=== PATIENT | male | born 1940 | race Caucasian/White ===

== ENCOUNTER → 2023-07-21 07:49 | Outpatient (REF) | payer OTHER, SELFPAY | LOC: RAD 07:49 | PROVIDERS: ATTENDING PHYSICIAN Family Medicine; FAMILY PHYSICIAN Family Medicine | DX: M79.604 Pain in right leg (principal); M79.605 Pain in left leg; E11.21 Type 2 diabetes mellitus with diabetic nephropathy | CPT/HCPCS: 93922; 93925 ==

== ENCOUNTER 2023-08-08 23:12 | Inpatient (IN) | payer OTHER, SELFPAY ==
[2023-08-08 16:34] VITALS: BP 102/47
[2023-08-08 16:54] LABS: % Basophils 0.4 % (0-2); % Eosinophils 0.1 % (0-6); % Lymphocytes 4.4 % (20.5-51.1); % Monocytes 7.9 % (1.7-9.3); % Neutrophils 86.2 % (42.2-75.2); Absolute Basophils 0.1 10^3/uL (0-0.2); Absolute Immature Granulocytes 0.3 10^3/uL (0-0.05); Absolute Lymphocytes 1.4 10^3/uL (1.2-3.4); Absolute Monocytes 2.4 10^3/uL (0.1-0.6); Absolute Neutrophils 26.3 10^3/uL (1.4-6.5); Hematocrit 41.9 % (39.0-52.0); Hemoglobin 13.3 g/dL (13.0-18.0); Mean Corp Hgb Conc. 31.7 g/dL (33.0-37.0); Mean Corpuscular Hgb 25.1 pg (27.0-31.0); Mean Corpuscular Volume 79.1 fL (80.0-94.0); Mean Platelet Volume 8.8 fL (7.4-10.4); Nucleated Red Blood Cells % 0 % (-); Platelet Count 173 10^3/uL (130-400); Red Cell Dist. Width 18.8 % (11.5-14.5); White Blood Cell Count 30.5 10^3/uL (4.8-10.8)
[2023-08-08 17:04] LABS: Urine Albumin Trace (Neg - Trace); Urine Bilirubin Negative (Negative); Urine Character Slightly Cloudy (Clear); Urine Color Amber; Urine Glucose Negative (Negative); Urine Ketone Trace (Negative); Urine Leukocyte 2+ (Negative); Urine Nitrite Negative (Negative); Urine Occult Blood Trace (Negative); Urine Urobilinogen Negative (Neg - 1+)
[2023-08-08 17:07] LABS: ALT (SGPT) 30 U/L (0-50); AST (SGOT) 30 U/L (17-59); Alkaline Phosphatase 56 U/L (38-126); Blood Urea Nitrogen 16 mg/dl (9-20); Calcium 9.1 mg/dl (8.4-10.2); Carbon Dioxide 26 mmol/L (22-30); Chloride 99 mmol/L (98-107); Glucose 128 mg/dl (70-99); Potassium 3.7 mmol/L (3.5-5.1); Sodium 133 mmol/L (135-145); Total Bilirubin 1.2 mg/dl (0.2-1.3); Total Protein 7.2 g/dl (6.3-8.2); eGFR > 60.00
[2023-08-08 17:17] LABS: Urine Bacteria Many (Negative); Urine White Cell 26-30 /HPF (0-5)
[2023-08-08 17:20] LABS: Urine Red Blood Cell 0-2 /HPF (0-2)
--- NOTE | 2023-08-08 18:35 | ED.GENMED ---
History of Present Illness
General
Chief Complaint: Urinary Symptoms
Time Seen by Provider: 08/08/23 18:04
Travel History
Have you had any contact with someone who has COVID-19?: No
Do you have any symptoms of coronavirus? Fever > 100 degrees, chills, cough, shortness of breath, sore throat, loss of taste or smell, muscle aches, or headache?: No
History of Present Illness
History of Present Illness:
82-year-old male with history of A-fib on Xarelto, hypertension, hyperlipidemia presents to the emergency department for evaluation of fever and chills developing earlier in the day. He notes that his urination was painful for the past several days
intermittently but worsening over the past 24 hours. Incidentally he notes that he had a COVID-19 vaccine yesterday. His daughter reports that he had shaking chills throughout the day today and complained of numb fingers. Currently the patient
denies any chest pain, shortness of breath, or abdominal pain. Has not taken any antipyretics today.
Past History
Past History
ED Past Medical History: Arrthythmia, HTN, Hypercholesterolemia, Other and Other
ED Past Surgical History: Orthopedic, Tonsilectomy and Other
Social History
Tobacco: Former smoker
Alcohol: Occasional
Personal:
Living: with family
Employment: Retired
Family History
Family History: CAD
Review of Systems
Review of Systems
Allergies reviewed?: Yes
All Other Systems: ROS reviewed and negative except as documented in HPI and ROS
Phy Exam
Physical Exam
Physical Exam:
GEN: Well appearing, NAD, WDWN
Eyes: PERRLA, EOMs intact, no scleral icterus
HENT: NCAT, oral mucosa moist
Lungs: CTAB, no wheezes, rales, rhonchi, normal chest wall excursion
Cardiac: RRR, no M/R/G, no peripheral edema. Radial pulses 2+ bilat
Abdomen: S, NT, ND, NABS, no masses or hepatosplenomegaly
Neuro: AO x 3
MSK: No gross deformity or ecchymosis. No edema. No digital clubbing
Skin: No rashes, petechiae. Normal color, no pallor or jaundice.
Psych: Calm, cooperative, proper hygiene
Course
Orders/Labs/Results
Orders:
Orders
08/08/23 16:43
Complete Blood Count/With Diff Urgent
Comprehensive Metabolic Panel Urgent
Urinalysis Reflex To Culture Urgent
Date Specimen was Collected: 08/08/23
Time Specimen was Collected: 16:37
Urine Microscopic Reflex Cult Urgent
Urine Culture Urgent
TIEN Source: U
Specimen Description:
Date Specimen was Collected: 08/08/23
Time Specimen was Collected: 16:37
08/08/23 18:31
0.9% Sodium Chloride 1000 ml [Nss] 1,000 ml IV BOLUS
CefTRIAXone [Rocephin] 1,000 mg IV NOW STA
08/08/23 18:32
CT Abd/pel Without Iv Or Oral Urgent
Comment:
Reason For Exam: urosepsis eval for stone
08/08/23 18:36
CefTRIAXone [Rocephin] 1,000 mg .ROUTE .[facility]
08/08/23 18:39
Lactic Acid Q4H
Comment: CANCEL 2nd LACTIC ACID IF 1st LACTIC ACID IS LESS THAN 2
Blood Culture Q30M
TIEN Source: Blood/Venous
Specimen Description:
Blood Culture Q30M
TIEN Source: Blood/Venous
Specimen Description:
Abnormal Lab Results
08/08/23
16:43
WBC 30.5 H 10^3/uL
(4.8-10.8)
MCV 79.1 L fL
(80.0-94.0)
MCH 25.1 L pg
(27.0-31.0)
MCHC 31.7 L g/dL
(33.0-37.0)
RDW 18.8 H %
(11.5-14.5)
Abs Immat Gran (auto) 0.3 H 10^3/uL
(0-0.05)
Absolute Neuts (auto) 26.3 H 10^3/uL
(1.4-6.5)
Absolute Monos (auto) 2.4 H 10^3/uL
(0.1-0.6)
Immature Gran % 1.0 H %
(0-0.5)
Neutrophils % 86.2 H %
(42.2-75.2)
Lymphocytes % 4.4 L %
(20.5-51.1)
Sodium 133 L mmol/L
(135-145)
Glucose 128 H mg/dl
(70-99)
Urine Ketones Trace A
(Negative)
Ur Occult Blood Reflex Trace A
(Negative)
Leukocyte Esterase Rfl 2+ A
(Negative)
Urine WBC (Reflex) 26-30 A /HPF
(0-5)
Urine Bacteria (Reflex) Many A
(Negative)
08/08/23 16:43
08/08/23 16:43
Vital Signs
Initial and Last Documented VS:
Initial Vital Signs
Temp Pulse Resp BP Pulse Ox
99.6 F 101 20 102/47 97
08/08/23 16:34 08/08/23 16:34 08/08/23 16:34 08/08/23 16:34 08/08/23 16:34
Last Documented Vital Signs
Temp Pulse Resp BP Pulse Ox
99.6 F 102 18 110/72 98
08/08/23 16:34 08/08/23 21:31 08/08/23 21:31 08/08/23 21:31 08/08/23 21:31
MDM/Problems Addressed
MDM/Problems Addressed:
Patient's reported rigors digital paresthesias coupled with high leukocytosis concerning for gram-negative bacteremia. Workup is significant for UTI, he does have mild to moderate urinary retention with approximately 150 mL on postvoid bladder
scan. No evidence for significant urinary obstruction on CT. otherwise patient appears clinically stable, past urine culture data shows Citrobacter with insignificant resistance pattern, will start IV ceftriaxone
*Critical Care Note
Total Time (30-74mins, 75-104mins- exclusive of procedures): Not Applicable
ED Attending Note
-
Portions of this chart may have been created with voice recognition software.� Occasional wrong word or��sound alike� substitutions may have occurred due to the inherent limitations of voice recognition software.
Discharge Plan
Departure
Patient Disposition: Admit
Date of Disposition: 08/08/23
Time of Disposition: 22:04
Admit to: Med/Surg
Presentation/result/management discussed w/ accepting MD/DO: Hospitalist
Discharge Problem:
UTI (urinary tract infection), Sepsis
Prescriptions:
No Action
allopurinol 300 MG tablet
300 mg PO DAILY
testosterone cypionate 200 mg/mL Kit
240 mg IM Q3W Qty: 0
Patient Comments:
08/08/2023: 1.2ml
metoprolol succinate 50 MG tablet extended release 24 hr
25 mg PO DAILY
Ocuvite with Lutein 1 EACH tablet
1 ea PO BID
Glucosamine Sulf-Chondroitin 1 EACH capsule
1 cap PO DAILY
amitriptyline 10 MG tablet
10 mg PO HS Qty: 0 0RF
[place]-3 Plus Vitamin D3 1 EACH capsule
1 tablets PO DAILY
lisinopril 10 MG tablet
10 mg PO DAILY
Eliquis 5 MG tablet
5 mg PO BID
multivitamin Tablet
1 tab PO DAILY
metoprolol succinate 50 mg Tablet Extended Release 24 Hr
50 mg PO QPM
spironolacton-hydrochlorothiaz 25-25 mg Tablet
1 tab PO DAILY
omeprazole 40 mg Capsule,Delayed Release(Dr/Ec)
40 mg PO DAILY
cyanocobalamin (vitamin B-12) [Vitamin B-12] 500 mcg Tablet
1,000 mcg PO DAILY
tamsulosin 0.4 mg capsule
0.4 mg PO DAILY
cholecalciferol (vitamin D3) [Vitamin D3] 25 mcg (1,000 unit) Tablet
50 mcg PO DAILY
Referrals:
Hiram Lima MD [Family Provider] -
Interventions
Interventions:
*Risk Screen - Suicide Last Done: 08/08/23 17:53
*General Assessment Last Done: 08/08/23 17:53
*Neglect/Abuse Screening Last Done: 08/08/23 17:53
ED- Fall Risk Assessment Last Done: 08/08/23 17:53
*ED COVID-19 Vaccine History Last Done: 08/08/23 16:34
ED-Male Genitourinary Assessment Last Done: 08/08/23 17:53
Discharge Date and Time
Print Language: BENINESE
[2023-08-08] MEDS: NSS 1000 IV (18:37)
[2023-08-08] MEDS: ROCEPHIN 1000 MG IV (18:37)
[2023-08-08 18:53] VITALS: BP 110/53
[2023-08-08 19:06] LABS: Lactic Acid 1.3 mmol/L (0.7-2.0)
[2023-08-08 20:19] VITALS: BP 106/53
[2023-08-08 21:31] VITALS: BP 110/72
--- NOTE | 2023-08-08 22:38 | HPS.HSE ---
Family Physician
-
Family Physician: Hiram Lima
Chief Complaint
-
Dysuria, Frequency, Malaise
History of Present Illness
Patient is an 82y M with PMH significant for obesity, hypertension and paroxysmal A-Fib who presents to ED complaining of urinary symptoms and generalized malaise. Patient states that he started with dysuria and frequency about 3 days ago. His
symptoms have persisted since that time. Yesterday he received a COVID vaccine / booster. He remained in bed from 11PM last evening until 11AM this AM citing that he felt very weak and fatigued. He continues to have urinary symptoms. He denies
any abdominal pain, N/V/D, fevers / chills or flank pain.
Patient denies any prior history of similar symptoms following COVID vaccine.
Medical History
Past Medical History
Past Medical History: Reports Other
Additional Past Medical History:
Hypertension
Paroxysmal Atrial Fibrillation
Colon Cancer
GERD
Gout
Diet-Controlled DM-II
Obesity
Hypogonadism
Past Surgical History: Reports Other
Additional Past Surgical History:
Partial Colectomy
Cataracts
Bilateral Knee Surgery
Social History
Tobacco: Former Smoker (Remote history of tobacco use having stopped smoking 40+ years ago.)
Alcohol: Daily (1-3 drinks of vodka daily.)
Drug: None
Family History
Family History: Not pertinent
Allergies / Home Medications
Allergies reflects when Allergies were last updated in [employer].
Home Medications with original date entered in [employer]
Allergy/Medication List:
Allergies
Allergy/AdvReac Type Severity Reaction Status Date / Time
No Known Allergies Allergy Verified 01/25/23 16:47
Home Medications
allopurinol 300 mg tablet 300 mg PO DAILY 01/23/11
testosterone cypionate 200 mg/mL intramuscular kit 240 mg IM Q3W ##0 01/23/11
glucosamine sulfate dipotassium Cl 500 mg-chondroitin 400 mg capsule (Glucosamine Sulfate 2 KCL-Chondroitin) 1 cap PO DAILY 09/24/14
metoprolol succinate 50 mg tablet,extended release 24 hr 25 mg PO DAILY 09/24/14
vit A 300 mcg-C 200 mg-E 27 mg-lutein 2 mg and minerals tablet (Ocuvite with Lutein) 1 ea PO BID 09/24/14
amitriptyline 10 mg tablet 10 mg PO HS ##0 09/27/14
omega-3 650 mg-dha 400 mg-epa 200 mg-fish oil-vit D3 300 unit capsule ([place]-3 Plus Vitamin D3) 1 tablets PO DAILY 06/14/16
apixaban 5 mg tablet (Eliquis) 5 mg PO BID 12/03/18
lisinopril 10 mg tablet 10 mg PO DAILY 12/03/18
cholecalciferol (vitamin D3) 25 mcg (1,000 unit) tablet (Vitamin D3) 50 mcg PO DAILY 08/08/23
cyanocobalamin (vitamin B-12) 500 mcg tablet (Vitamin B-12) 1,000 mcg PO DAILY 08/08/23
metoprolol succinate 50 mg tablet,extended release 24 hr 50 mg PO QPM 08/08/23
multivitamin 1 tab PO DAILY 08/08/23
omeprazole 40 mg capsule,delayed release 40 mg PO DAILY 08/08/23
spironolactone 25 mg-hydrochlorothiazide 25 mg tablet 1 tab PO DAILY 08/08/23
tamsulosin 0.4 mg capsule 0.4 mg PO DAILY 08/08/23
Review of Systems
-
History Source: Patient
A 12 point ROS was completed and negative except as noted: Yes
Constitutional: Reports Fatigue; Denies Fever or Chills
EENT: Denies Sore Throat
Respiratory: Denies Cough or Trouble Breathing
Cardiac: Denies Chest Pain or Palpitations
Abdomen/GI: Denies Abdominal Pain, Nausea, Vomiting or Diarrhea
: Reports Dysuria, Frequency and Urgency; Denies Flank Pain or Bleeding
Musculoskeletal: Denies Joint Pain or Edema
Neurological: Reports Weakness; Denies Dizzy or Headache
Psych: Denies Depression or Anxiety
Physical Exam
Vital Signs
Vital Signs
Temp Pulse Resp BP Pulse Ox
99.6 F 102 18 110/72 98
08/08/23 16:34 08/08/23 21:31 08/08/23 21:31 08/08/23 21:31 08/08/23 21:31
Physical Exam
General: Other (82y M in no acute distress.)
HEENT: Moist mucous membranes and PERRLA
Respiratory: Clear; No Wheezes, Rales or Rhonchi
Cardiac: S1/S2 and Regular Rhythm; No Murmur
GI: Soft, Non Tender, Non Distended and Normal Bowel Sounds
Genito-urinary: No costovertebral tender
Musculoskeletal: No Clubbing, No Cyanosis and No Edema
Neuro: AO x 3
Laboratory Results
-
08/08/23 16:43
08/08/23 16:43
Laboratory Results
Lactic Acid Cancelled 08/08/23 22:45
Total Bilirubin 1.2 mg/dl (0.2-1.3) 08/08/23 16:43
AST 30 U/L (17-59) 08/08/23 16:43
ALT 30 U/L (0-50) 08/08/23 16:43
Alkaline Phosphatase 56 U/L (38-126) 08/08/23 16:43
Impression/Plan
-
A/P: Patient is an 82y M with PMH significant for hypertension, PA-Fib and obesity who presents to ED complaining of urinary symptoms and weakness x 3 days.
UTI
Sepsis secondary to the above
- Admit for further evaluation and treatment.
- Patient presents with leukocytosis, tachycardia and tachypnea with UA and symptoms suggestive of urinary source of infection.
- IV abx with ceftriaxone pending culture data.
- Supportive care including IVFs.
- Follow for clinical improvement.
- CT done in the ED shows no evidence of obstruction or other acute intra-abdominal process.
- If clinical syndrome has been exacerbated by COVID vaccination, but clearly not the primary culprit here.
Benign Hypertension
- BP marginal here in the ED.
- Hold spironolactone / HCTZ acutely.
- Continue other outpatient med regimen with holding parameters.
Paroxysmal Atrial Fibrillation
- Stable. Currently in sinus rhythm.
- Continue metoprolol.
- Continue Eliquis for stroke risk reduction.
Diet-Controlled DM-II
- Stable. Monitor glucose during stay and cover with SSI if needed.
Gout
- Stable. Continue allopurinol.
Obesity due to excess calories
- Affects all aspects of care.
- Encourage healthy diet and increased exercise with goal of weight reduction.
Alcohol Use Disorder
Macrocytosis
- Patient with 'at least' one drink per day.
- Monitor for any signs / symptoms of withdrawal during stay and treat as needed.
- Thiamine, MVI, etc replacement.
- Check B12 levels with chronic macrocytosis - likely secondary to EtOH use.
DVT Prophylaxis: On Eliquis
Code Status: Full
[2023-08-08 23:56] VITALS: BP 148/80; BMI 27.9
[2023-08-08 23:56] LABS: Glucose - Point of Care 100 mg/dl (70-99)
[2023-08-09 00:22] VITALS: BMI 27.9
[2023-08-09] MEDS: LR 1000 IV ×3 (00:30→20:19)
[2023-08-09] MEDS: TYLENOL 650 MG PO ×2 (00:34→18:51)
--- NOTE | 2023-08-09 01:21 | PTCARENOTE ---
Receive pt from ER. Pt alert oriented X3, calm and pleasant. Pt assist X1 to his bed, feels weak. Pt oriented to the room, call sylvester within reach. Pt has no complaint of pain, or SOB. Pt reports dysuria, and frequency. Pt on NSR on telemonitor. Pt's
Slsy=916.7, YA=067/80, IC=212, SpO2=96% on RA. Pt normally wears CPAP at home, but refuses here. MSAS=4. Pt states the last drink was Thursday. Pt states that he drinks 1 drink/day, but no alcohol sx at this time. Bed alarm in place. Tylenol given for
fever, IVFs infusing per order. Will continue to monitor the pt.
[2023-08-09 03:39] VITALS: BP 124/70
[2023-08-09 05:09] VITALS: BMI 27.6
[2023-08-09 05:52] LABS: Hematocrit 37.5 % (39.0-52.0); Hemoglobin 12.2 g/dL (13.0-18.0); Mean Corp Hgb Conc. 32.5 g/dL (33.0-37.0); Mean Corpuscular Hgb 25.4 pg (27.0-31.0); Mean Corpuscular Volume 78.1 fL (80.0-94.0); Mean Platelet Volume 9.1 fL (7.4-10.4); Platelet Count 145 10^3/uL (130-400); Red Cell Dist. Width 18.4 % (11.5-14.5)
[2023-08-09 06:28] LABS: Blood Urea Nitrogen 15 mg/dl (9-20); Calcium 8.6 mg/dl (8.4-10.2); Carbon Dioxide 24 mmol/L (22-30); Chloride 102 mmol/L (98-107); Estimated Creatinine Clearance 55 ml/min; Glucose 97 mg/dl (70-99); Potassium 3.7 mmol/L (3.5-5.1); Sodium 133 mmol/L (135-145); eGFR > 60.00
[2023-08-09 07:09] LABS: Vitamin B12 952 pg/ml (239-931)
[2023-08-09 07:15] VITALS: BP 111/74
[2023-08-09 07:33] LABS: Glucose - Point of Care 102 mg/dl (70-99)
[2023-08-09] MEDS: NOVOLOG FLEXPEN-LOW RESISTANCE SC ×3 (08:01→16:48)
[2023-08-09] MEDS: ZESTRIL 10 MG PO (08:02)
[2023-08-09] MEDS: TOPROL XL 25 MG PO (08:03)
[2023-08-09] MEDS: PROTONIX 40 MG PO (08:03)
[2023-08-09] MEDS: THIAMINE INJECTION 200 MG IV ×2 (08:03→20:20)
[2023-08-09] MEDS: ZYLOPRIM 300 MG PO (08:03)
[2023-08-09] MEDS: FLOMAX 0.400000000000000022 MG PO (08:03)
[2023-08-09] MEDS: ELIQUIS 5 MG PO ×2 (08:03→20:19)
[2023-08-09] MEDS: FOLVITE 1 MG PO (08:03)
[2023-08-09 08:46] LABS: Glycohemoglobin (HgbA1c) 6.2 % (4.0-5.6)
--- NOTE | 2023-08-09 10:58 | CM ---
Patient with Dx UTI, sepsis. Room air. Receiving IV Abx. MSAS.
Met with patient and daughter Erin, Medical POA;
the patient resides with his daughter Michelle and 3 grand-children in a 2 story house with 1 SONIA & first floor bedroom/bath.
The patient has been independent in ADLs and ambulation without using any assistive devices.[facility] [address] [place]
DME - SPC, RW, w/c, hearing aides (does not have with him)
No prior VN or SNF.
PCP - Hiram Lima
Pharmacy - [facility] [address] [place]
CM Consult: Substance Abuse
The patient says he drinks 1 vodka with tonic daily and has for years. He used to have a beer with that but is no longer drinking the beer.
The patient feels he has no issues with his Etoh intake and declines the offer for [facility] for Etoh resources/programs.
His daughter Erin agrees with the patient that he is not having any issues re; his drinking.
Offered VN and patient declined.
Plan home with family.
[2023-08-09 11:40] VITALS: BP 100/54
[2023-08-09 11:48] LABS: Glucose - Point of Care 134 mg/dl (70-99)
--- NOTE | 2023-08-09 14:37 | W.PN.HOSP.TC ---
Today's Communication/Plan
-
continue current abx pending C&S
Assessment / Plan
Assessment / Plan
A/P: Patient is an 82y M with PMH significant for hypertension, PA-Fib and obesity who presents to ED complaining of urinary symptoms and weakness x 3 days.
UTI
Sepsis secondary to the above
- Patient presents with leukocytosis, tachycardia and tachypnea with UA and symptoms suggestive of urinary source of infection.
- IV abx with ceftriaxone pending culture data.
- Supportive care including IVFs.
- Follow for clinical improvement.
- CT done in the ED shows no evidence of obstruction or other acute intra-abdominal process.
- If clinical syndrome has been exacerbated by COVID vaccination, but clearly not the primary culprit here.
Benign Hypertension
- BP remains marginal
- Hold spironolactone / HCTZ acutely.
- Continue other outpatient med regimen with holding parameters.
Paroxysmal Atrial Fibrillation
- Stable. Currently in sinus rhythm.
- Continue metoprolol.
- Continue Eliquis for stroke risk reduction.
Diet-Controlled DM-II
- Stable. Monitor glucose during stay and cover with SSI if needed.
Gout
- Stable. Continue allopurinol.
Obesity due to excess calories
- Affects all aspects of care.
- Encourage healthy diet and increased exercise with goal of weight reduction.
Hga1c 6.2%
Alcohol Use Disorder
Macrocytosis
- Patient with 'at least' one drink per day.
- Monitor for any signs / symptoms of withdrawal during stay and treat as needed.
- Thiamine, MVI, etc replacement.
- B12 levels with chronic macrocytosis -952, likely secondary to EtOH use.
DVT Prophylaxis: On Eliquis
Code Status: Full
Anticipated Discharge: > 48 hours
Subjective/Interval History
-
Date of Service: August 09, 2023
Generally feels better
Objective Data
-
Labs:
Laboratory Results
08/09/23
05:33
WBC 27.0 H
Hgb 12.2 L
Hct 37.5 L
Plt Count 145
Sodium 133 L
Potassium 3.7
Chloride 102
Carbon Dioxide 24
BUN 15
Creatinine 1.0
Glucose 97
Calcium 8.6
Vital Signs:
Vital Signs
Temp Pulse Resp BP Pulse Ox
99.1 F 104 18 100/54 100
08/09/23 11:40 08/09/23 11:40 08/09/23 11:40 08/09/23 11:40 08/09/23 11:40
I&O
08/08/23 08/09/23 08/10/23
06:59 06:59 06:59
Intake Total 510 / 510
Output Total 150 / 150
Balance 360 / 360
Review of Systems
-
History Source: Patient and Coordinated Provider
Constitutional: Reports Fever (100.7)
EENT: Reports No Symptoms Reported
Respiratory: Reports No Symptoms
Cardiac: Reports No Symptoms
Abdomen/GI: Reports No Symptoms
Genitourinary: Reports Dysuria and Frequency
Neuro: Reports No Symptoms
Physical Exam
-
General: Well Developed, Well Nourished and No Apparent Distress
HEENT: Normocephalic, Atraumatic and Moist Mucous Membranes
Respiratory: Clear to Auscultation; Negative Wheezes, Rales or Rhonchi
Cardiac: Regular Rhythm and S1/S2
GI: Soft, Nontender and Nondistended
Musculoskeletal: No Clubbing, No Cyanosis and No Edema
Skin: Warm and Dry
Neuro: Awake, Alert and Oriented
[2023-08-09 15:20] VITALS: BP 105/66
[2023-08-09 16:45] LABS: Glucose - Point of Care 134 mg/dl (70-99)
[2023-08-09] MEDS: TOPROL XL 50 MG PO (17:18)
[2023-08-09] MEDS: ROCEPHIN 1000 MG IV (17:19)
[2023-08-09] MEDS: STERILE WATER FOR INJECTION 10 ML IV (17:20)
[2023-08-09 19:17] VITALS: BP 114/65
[2023-08-09 21:21] LABS: Glucose - Point of Care 133 mg/dl (70-99)
[2023-08-09] MEDS: ELAVIL 10 MG PO (21:48)
[2023-08-09 23:11] VITALS: BP 105/64
[2023-08-10 03:50] VITALS: BP 107/67
[2023-08-10 04:30] VITALS: BMI 28.2
[2023-08-10 05:19] LABS: % Basophils 0.4 % (0-2); % Eosinophils 1.5 % (0-6); % Immature Granulocytes 0.5 % (0-0.5); % Lymphocytes 7.4 % (20.5-51.1); % Monocytes 5.6 % (1.7-9.3); % Neutrophils 84.6 % (42.2-75.2); Absolute Basophils 0.1 10^3/uL (0-0.2); Absolute Eosinophils 0.2 10^3/uL (0-0.7); Absolute Immature Granulocytes 0.1 10^3/uL (0-0.05); Absolute Lymphocytes 1.1 10^3/uL (1.2-3.4); Absolute Monocytes 0.9 10^3/uL (0.1-0.6); Absolute Neutrophils 12.8 10^3/uL (1.4-6.5); Hematocrit 36.9 % (39.0-52.0); Hemoglobin 11.6 g/dL (13.0-18.0); Mean Corp Hgb Conc. 31.4 g/dL (33.0-37.0); Mean Corpuscular Volume 79.5 fL (80.0-94.0); Mean Platelet Volume 9.4 fL (7.4-10.4); Nucleated Red Blood Cells % 0 % (-); Platelet Count 145 10^3/uL (130-400); Red Blood Cell Count 4.64 10^6/uL (4.70-6.10); Red Cell Dist. Width 18.5 % (11.5-14.5); White Blood Cell Count 15.1 10^3/uL (4.8-10.8)
[2023-08-10 05:39] LABS: Blood Urea Nitrogen 16 mg/dl (9-20); Calcium 8.3 mg/dl (8.4-10.2); Carbon Dioxide 27 mmol/L (22-30); Chloride 101 mmol/L (98-107); Estimated Creatinine Clearance 55 ml/min; Glucose 87 mg/dl (70-99); Potassium 3.5 mmol/L (3.5-5.1); Sodium 133 mmol/L (135-145); eGFR > 60.00
[2023-08-10] MEDS: LR 1000 IV ×2 (06:27→21:52)
[2023-08-10] MEDS: NOVOLOG FLEXPEN-LOW RESISTANCE SC ×2 (08:12→17:35)
[2023-08-10] MEDS: FOLVITE 1 MG PO (08:13)
[2023-08-10] MEDS: ELIQUIS 5 MG PO ×2 (08:13→19:58)
[2023-08-10] MEDS: PROTONIX 40 MG PO (08:13)
[2023-08-10] MEDS: ZYLOPRIM 300 MG PO (08:13)
[2023-08-10] MEDS: FLOMAX 0.400000000000000022 MG PO (08:13)
[2023-08-10] MEDS: TOPROL XL 25 MG PO (08:14)
[2023-08-10] MEDS: FLUSH (NSS) 1 FLUSH IV ×3 (08:16→18:10)
[2023-08-10] MEDS: THIAMINE INJECTION 200 MG IV ×2 (08:16→19:59)
[2023-08-10] MEDS: ZESTRIL PO (08:17)
[2023-08-10 08:18] VITALS: BP 97/67
[2023-08-10 08:22] LABS: Glucose - Point of Care 98 mg/dl (70-99)
[2023-08-10 10:07] VITALS: BMI 28.2
[2023-08-10 11:25] VITALS: BP 113/59
--- NOTE | 2023-08-10 11:50 | W.PN.HOSP.TC ---
Today's Communication/Plan
-
Monitor vital signs
see plan
Continue with ceftriaxone
Follow final urine culture
Continue with tamsulosin
Bladder scan
Monitor leukocytosis
Assessment / Plan
Assessment / Plan
A/P: Patient is an 82y M with PMH significant for hypertension, PA-Fib and obesity who presents to ED complaining of urinary symptoms and weakness x 3 days.
UTI
Sepsis secondary to the above
- Patient presents with leukocytosis, tachycardia and tachypnea with UA and symptoms suggestive of urinary source of infection.
- IV abx with ceftriaxone pending culture data. bcx NGTD; urine cx pending
- Follow for clinical improvement.
- CT done in the ED shows no evidence of obstruction or other acute intra-abdominal process. does show enlarged prostate. Possible adrenal nodule for which patient should follow-up outpatient
- If clinical syndrome has been exacerbated by COVID vaccination, but clearly not the primary culprit here.
Benign Hypertension
- BP remains marginal
- Hold spironolactone / HCTZ acutely.
- Continue other outpatient med regimen with holding parameters.
Paroxysmal Atrial Fibrillation
- Stable. Currently in sinus rhythm.
- Continue metoprolol.
- Continue Eliquis for stroke risk reduction.
Mild hyponatremia
Monitor
Incidental adrenal nodule
Follow-up outpatient
Diet-Controlled DM-II
- Stable. Monitor glucose during stay and cover with SSI if needed.
History of BPH
CAT scan with enlarged prostate
Follows up with urology outpatient
Continue with tamsulosin
Bladder scan
Gout
- Stable. Continue allopurinol.
Obesity due to excess calories
- Affects all aspects of care.
- Encourage healthy diet and increased exercise with goal of weight reduction.
Hga1c 6.2%
Alcohol Use Disorder
Macrocytosis
- Patient with 'at least' one drink per day.
- Monitor for any signs / symptoms of withdrawal during stay and treat as needed.
- Thiamine, MVI, etc replacement.
- B12 levels with chronic macrocytosis -952, likely secondary to EtOH use.
DVT Prophylaxis: On Eliquis
Code Status: Full
General: Well Developed, Well Nourished and No Apparent Distress
HEENT: Normocephalic, Atraumatic and Moist Mucous Membranes
Respiratory: Clear to Auscultation; Negative Wheezes, Rales or Rhonchi
Cardiac: Regular Rhythm and S1/S2
GI: Soft, Nontender and Nondistended
Musculoskeletal: No Clubbing, No Cyanosis and No Edema
Skin: Warm and Dry
Neuro: Awake, Alert and Oriented
Anticipated Discharge: Within 24 hours
Subjective/Interval History
-
Date of Service: August 10, 2023
Denies pain
Objective Data
-
Labs:
Laboratory Results
08/10/23
04:10
WBC 15.1 H
Hgb 11.6 L
Hct 36.9 L
Plt Count 145
Sodium 133 L
Potassium 3.5
Chloride 101
Carbon Dioxide 27
BUN 16
Creatinine 1.0
Glucose 87
Calcium 8.3 L
Vital Signs:
Vital Signs
Temp Pulse Resp BP Pulse Ox
98.9 F 107 18 113/59 97
08/10/23 11:25 08/10/23 11:25 08/10/23 11:25 08/10/23 11:25 08/10/23 11:25
I&O
08/09/23 08/10/23 08/11/23
06:59 06:59 06:59
Intake Total 510 / 510 2900 / 2900
Output Total 150 / 150
Balance 360 / 360 2900 / 2900
[2023-08-10 12:01] LABS: Glucose - Point of Care 190 mg/dl (70-99)
[2023-08-10] MEDS: NOVOLOG FLEXPEN-LOW RESISTANCE 1 UNITS SC (12:41)
[2023-08-10 16:14] VITALS: BP 105/62
--- NOTE | 2023-08-10 16:39 | PTCARENOTE ---
Pt AAO x3, MATHUR well, OOB in chair for most of shift, ambulates in rubio/to BR; needs assistance w/IV pole when OOB. No c/o weakness/dizziness. VSS. Telemetry:A-fib. On room air- pulse ox 96%. Abd obese,soft federico PO well. Voids in BR without
difficulty; states he still has some discomfort when urinating; denies bleeding. IVF's RL @ 100 ml/ hr infusing via Rt AC site without sx of infiltration. No c/o at present. Will continue to monitor.
[2023-08-10 17:17] LABS: Glucose - Point of Care 98 mg/dl (70-99)
[2023-08-10] MEDS: STERILE WATER FOR INJECTION 10 ML IV (17:54)
[2023-08-10] MEDS: ROCEPHIN 1000 MG IV (17:54)
[2023-08-10] MEDS: TOPROL XL 50 MG PO (17:55)
[2023-08-10] MEDS: FLUSH (NSS) IV (18:25)
[2023-08-10 19:37] VITALS: BP 135/84
[2023-08-10] MEDS: ELAVIL 10 MG PO (20:00)
[2023-08-10 21:19] LABS: Glucose - Point of Care 129 mg/dl (70-99)
[2023-08-10 23:39] VITALS: BP 121/79
[2023-08-11 03:26] VITALS: BP 103/65
[2023-08-11 04:36] LABS: % Basophils 0.5 % (0-2); % Eosinophils 3.9 % (0-6); % Immature Granulocytes 0.4 % (0-0.5); % Monocytes 10.3 % (1.7-9.3); % Neutrophils 71.9 % (42.2-75.2); Absolute Eosinophils 0.3 10^3/uL (0-0.7); Absolute Monocytes 0.8 10^3/uL (0.1-0.6); Absolute Neutrophils 5.6 10^3/uL (1.4-6.5); Hematocrit 36.4 % (39.0-52.0); Hemoglobin 11.4 g/dL (13.0-18.0); Mean Corp Hgb Conc. 31.3 g/dL (33.0-37.0); Mean Corpuscular Hgb 25.2 pg (27.0-31.0); Mean Corpuscular Volume 80.5 fL (80.0-94.0); Mean Platelet Volume 9.1 fL (7.4-10.4); Nucleated Red Blood Cells % 0 % (-); Platelet Count 148 10^3/uL (130-400); Red Blood Cell Count 4.52 10^6/uL (4.70-6.10); White Blood Cell Count 7.8 10^3/uL (4.8-10.8)
[2023-08-11 05:09] LABS: Blood Urea Nitrogen 14 mg/dl (9-20); Calcium 8.3 mg/dl (8.4-10.2); Carbon Dioxide 25 mmol/L (22-30); Chloride 106 mmol/L (98-107); Estimated Creatinine Clearance 61 ml/min; Glucose 101 mg/dl (70-99); Potassium 3.9 mmol/L (3.5-5.1); Sodium 135 mmol/L (135-145); eGFR > 60.00
[2023-08-11 06:00] VITALS: BMI 28.5
[2023-08-11 08:00] VITALS: BP 101/60
[2023-08-11] MEDS: LR 1000 IV (08:05)
[2023-08-11] MEDS: PROTONIX 40 MG PO (08:07)
[2023-08-11] MEDS: ELIQUIS 5 MG PO (08:07)
[2023-08-11] MEDS: FOLVITE 1 MG PO (08:07)
[2023-08-11] MEDS: FLOMAX 0.400000000000000022 MG PO (08:07)
[2023-08-11] MEDS: ZYLOPRIM 300 MG PO (08:07)
[2023-08-11] MEDS: THIAMINE INJECTION 200 MG IV (08:08)
[2023-08-11] MEDS: TOPROL XL 25 MG PO (08:08)
[2023-08-11] MEDS: FLUSH (NSS) 1 FLUSH IV (08:09)
[2023-08-11] MEDS: NOVOLOG FLEXPEN-LOW RESISTANCE SC ×2 (08:15→12:46)
[2023-08-11 08:16] LABS: Glucose - Point of Care 89 mg/dl (70-99)
[2023-08-11 09:56] VITALS: BP 126/70; PULSE 88; O2SAT 95
--- NOTE | 2023-08-11 10:04 | PTOTSP ---
Pt is able to get OOB, transfer, and ambulate in hallway and on stairs without assistance and without need for any assistive devices. He hopes to go home today as he plans to travel to [place] with family this weekend for a graduation. No skilled PT
needs were identified. Will sign off.
[2023-08-11 10:43] VITALS: BMI 28.5
--- NOTE | 2023-08-11 11:50 | W.PN.HOSP.TC ---
Today's Communication/Plan
-
Monitor vital signs and see plan
Change antibiotics to oral and discharge
Time of discharge 37 minutes
Assessment / Plan
Assessment / Plan
A/P: Patient is an 82y M with PMH significant for hypertension, PA-Fib and obesity who presents to ED complaining of urinary symptoms and weakness x 3 days.
UTI
Sepsis secondary to the above
- Patient presents with leukocytosis, tachycardia and tachypnea with UA and symptoms suggestive of urinary source of infection.
- bcx NGTD; urine cx grew klebsiella. Will change antibiotics to p.o. cefdinir and dc
- Follow for clinical improvement.
- CT done in the ED shows no evidence of obstruction or other acute intra-abdominal process. does show enlarged prostate. Possible adrenal nodule for which patient should follow-up outpatient
- If clinical syndrome has been exacerbated by COVID vaccination, but clearly not the primary culprit here.
Benign Hypertension
- BP remains marginal
- Hold spironolactone / HCTZ acutely.
- Continue other outpatient med regimen with holding parameters.
Paroxysmal Atrial Fibrillation
- Stable. Currently in sinus rhythm.
- Continue metoprolol.
- Continue Eliquis for stroke risk reduction.
Mild hyponatremia
Monitor
Incidental adrenal nodule
Follow-up outpatient
Diet-Controlled DM-II
- Stable. Monitor glucose during stay and cover with SSI if needed.
History of BPH
CAT scan with enlarged prostate
Follows up with urology outpatient
Continue with tamsulosin
Bladder scan
Gout
- Stable. Continue allopurinol.
Obesity due to excess calories
- Affects all aspects of care.
- Encourage healthy diet and increased exercise with goal of weight reduction.
Hga1c 6.2%
Alcohol Use Disorder
Macrocytosis
- Patient with 'at least' one drink per day.
- Monitor for any signs / symptoms of withdrawal during stay and treat as needed.
- Thiamine, MVI, etc replacement.
- B12 levels with chronic macrocytosis -952, likely secondary to EtOH use.
DVT Prophylaxis: On Eliquis
Code Status: Full
General: Well Developed, Well Nourished and No Apparent Distress
HEENT: Normocephalic, Atraumatic and Moist Mucous Membranes
Respiratory: Clear to Auscultation; Negative Wheezes, Rales or Rhonchi
Cardiac: Regular Rhythm and S1/S2
GI: Soft, Nontender and Nondistended
Musculoskeletal: No Clubbing, No Cyanosis and No Edema
Skin: Warm and Dry
Neuro: Awake, Alert and Oriented
Anticipated Discharge: Today
Subjective/Interval History
-
Date of Service: August 11, 2023
denies pain
Objective Data
-
Labs:
Laboratory Results
08/11/23 08/11/23
04:17 04:18
WBC 7.8
Hgb 11.4 L
Hct 36.4 L
Plt Count 148
Sodium 135
Potassium 3.9
Chloride 106
Carbon Dioxide 25
BUN 14
Creatinine 0.9
Glucose 101 H
Calcium 8.3 L
Vital Signs:
Vital Signs
Temp Pulse Resp BP Pulse Ox
98.9 F 81 18 101/60 95
08/11/23 08:00 08/11/23 08:08 08/11/23 08:00 08/11/23 08:08 08/11/23 08:15
I&O
08/10/23 08/11/23 08/12/23
06:59 06:59 06:59
Intake Total 2900 / 2900 2119
Balance 2900 / 2900 2119
[2023-08-11 11:52] VITALS: BP 121/60
--- NOTE | 2023-08-11 11:58 | W.DCSUMMARY ---
Discharge Summary
Discharge Data
Date of Admission: 08/08/23
Date of Discharge: 08/11/23
-
Pending Results: No
Hospital Course
82-year-old male with past medical history of hypertension, atrial fibrillation, BPH, gout, obesity, alcohol use disorder came to the hospital with sepsis secondary to urinary tract infection. Patient was initially started on IV antibiotic which
was later transitioned to oral antibiotics prior to discharge. Patient urine culture came back positive for Klebsiella. While patient was in the hospital he also had marginal normal blood pressure so his hydrochlorothiazide and spironolactone was
held. He had a CAT scan of the abdomen which showed possible incidental finding of adrenal nodule for which she was instructed to follow-up outpatient. Once patient symptoms improved, he was then discharged home with instructions to follow-up with
all his other physicians outpatient.
Discharge Plan
-
Patient Disposition: Home (Routine Discharge)
Discharge Diagnosis/Procedures: Sepsis secondary to urinary tract infection
Hyponatremia
Incidental adrenal nodule
Diet: As tolerated
Activity: As tolerated
Driving Restrictions: As prior to admission
Bathing Restrictions: None
Activity Restrictions/Additional Instructions:
Follow-up with your primary care provider for incidental adrenal nodule
Referrals:
Hiram Lima MD [Family Provider] - in less than 1 week
Prescriptions:
New
folic acid 1 mg Tablet
1 mg PO DAILY Qty: 30 0RF
cefdinir 300 mg capsule
300 mg PO BID Qty: 20 0RF
Continued
allopurinol 300 MG tablet
300 mg PO DAILY
testosterone cypionate 200 mg/mL Kit
240 mg IM Q3W Qty: 0
Patient Comments:
08/08/2023: 1.2ml
metoprolol succinate 50 MG tablet extended release 24 hr
25 mg PO DAILY
Ocuvite with Lutein 1 EACH tablet
1 ea PO BID
Glucosamine Sulf-Chondroitin 1 EACH capsule
1 cap PO DAILY
amitriptyline 10 MG tablet
10 mg PO HS Qty: 0 0RF
[place]-3 Plus Vitamin D3 1 EACH capsule
1 tablets PO DAILY
Eliquis 5 MG tablet
5 mg PO BID
multivitamin Tablet
1 tab PO DAILY
metoprolol succinate 50 mg Tablet Extended Release 24 Hr
50 mg PO QPM
omeprazole 40 mg Capsule,Delayed Release(Dr/Ec)
40 mg PO DAILY
cyanocobalamin (vitamin B-12) [Vitamin B-12] 500 mcg Tablet
1,000 mcg PO DAILY
tamsulosin 0.4 mg capsule
0.4 mg PO DAILY
cholecalciferol (vitamin D3) [Vitamin D3] 25 mcg (1,000 unit) Tablet
50 mcg PO DAILY
Held
lisinopril 10 MG tablet
10 mg PO DAILY
Hold Instructions: Monitor blood pressure greater than 140/90
spironolacton-hydrochlorothiaz 25-25 mg Tablet
1 tab PO DAILY
Hold Instructions: Monitor blood pressure greater than 140/90
Discharge Orders:
Discharge Patient (As Directed); Ordered 08/11/23
Ordered By: Dane Chris
Discharge Date and Time
Discharge Date/Time: 08/11/23 13:18
Print Language: ANDORRAN
[2023-08-11 12:30] LABS: Glucose - Point of Care 136 mg/dl (70-99)
[2023-08-11] MEDS: LR IV (12:46)
--- NOTE | 2023-08-11 14:16 | CM ---
MD entered order for discharge.
Offered Vn he declined need.
Family to drive home.
PLAN Home no needs
== END 2023-08-11 13:18 | disposition home or self-care (01) | DRG 872 ==
LOC: 4 EAST ACU 23:12
PROVIDERS: Emergency Medicine; Internal Medicine; Physician Assistant; ADMITTING PHYSICIAN Hospitalist; ATTENDING PHYSICIAN Internal Medicine; EMERGENCY PHYSICIAN Emergency Medicine; FAMILY PHYSICIAN Family Medicine
DX: A41.9 Sepsis, unspecified organism (principal); N39.0 Urinary tract infection, site not specified; E87.1 Hypo-osmolality and hyponatremia; I48.0 Paroxysmal atrial fibrillation; E78.00 Pure hypercholesterolemia, unspecified; N40.0 Benign prostatic hyperplasia without lower urinary tract symptoms; I10 Essential (primary) hypertension; E27.8 Other specified disorders of adrenal gland; E66.09 Other obesity due to excess calories; K21.9 Gastro-esophageal reflux disease without esophagitis; B96.1 Klebsiella pneumoniae [K. pneumoniae] as the cause of diseases classified elsewhere; M10.9 Gout, unspecified; E11.36 Type 2 diabetes mellitus with diabetic cataract; E29.1 Testicular hypofunction; F10.10 Alcohol abuse, uncomplicated; Z87.891 Personal history of nicotine dependence; Z79.01 Long term (current) use of anticoagulants; Z68.28 Body mass index [BMI] 28.0-28.9, adult; Z85.038 Personal history of other malignant neoplasm of large intestine
CPT/HCPCS: 51798; 74176; 80048; 80053; 81003; 81015; 82607; 82962; 83036; 83605; 85025; 85027; 87040; 87077; 87086; 87186; 96361; 96374; 97162; 99284

== ENCOUNTER 2023-10-02 09:25 | Emergency (ER) | payer SELFPAY ==
[2023-10-02 09:29] VITALS: BP 117/66
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
[2023-10-02 10:45] VITALS: BP 120/54
[2023-10-02 10:53] LABS: % Basophils 1.3 % (0-2); % Eosinophils 4.3 % (0-6); % Immature Granulocytes 0.2 % (0-0.5); % Lymphocytes 18.8 % (20.5-51.1); % Monocytes 10.9 % (1.7-9.3); % Neutrophils 64.5 % (42.2-75.2); Absolute Basophils 0.1 10^3/uL (0-0.2); Absolute Eosinophils 0.3 10^3/uL (0-0.7); Absolute Lymphocytes 1.1 10^3/uL (1.2-3.4); Absolute Monocytes 0.7 10^3/uL (0.1-0.6); Absolute Neutrophils 3.9 10^3/uL (1.4-6.5); Hematocrit 42.4 % (39.0-52.0); Hemoglobin 13.6 g/dL (13.0-18.0); Mean Corp Hgb Conc. 32.1 g/dL (33.0-37.0); Mean Corpuscular Hgb 25.5 pg (27.0-31.0); Mean Corpuscular Volume 79.4 fL (80.0-94.0); Mean Platelet Volume 8.9 fL (7.4-10.4); Nucleated Red Blood Cells % 0 % (-); Platelet Count 192 10^3/uL (130-400); Red Blood Cell Count 5.34 10^6/uL (4.70-6.10); Red Cell Dist. Width 19.7 % (11.5-14.5); White Blood Cell Count 6.1 10^3/uL (4.8-10.8)
[2023-10-02 11:00] VITALS: BP 123/62
[2023-10-02 11:35] LABS: Blood Urea Nitrogen 17 mg/dl (9-20); Calcium 9.4 mg/dl (8.4-10.2); Carbon Dioxide 25 mmol/L (22-30); Chloride 102 mmol/L (98-107); Glucose 106 mg/dl (70-99); Sodium 135 mmol/L (135-145); eGFR > 60.00
== END 2023-10-02 13:08 | disposition home or self-care (01) ==
LOC: EMR 09:25
PROVIDERS: EMERGENCY PHYSICIAN Student in an Organized Health Care Education/Training Program; FAMILY PHYSICIAN Family Medicine
DX: S20.219A Contusion of unspecified front wall of thorax, initial encounter (principal); R91.1 Solitary pulmonary nodule; V89.2XXA Person injured in unspecified motor-vehicle accident, traffic, initial encounter; I10 Essential (primary) hypertension; E78.00 Pure hypercholesterolemia, unspecified; Y92.410 Unspecified street and highway as the place of occurrence of the external cause; Z82.49 Family history of ischemic heart disease and other diseases of the circulatory system; Z87.891 Personal history of nicotine dependence
CPT/HCPCS: 99284; 71260; 74177; 80048; 85025; 93005; Q9967

== ENCOUNTER → 2023-11-13 11:58 | Outpatient (REF) | payer OTHER, SELFPAY | LOC: PET 11:58 | PROVIDERS: ATTENDING PHYSICIAN Family Medicine | DX: R91.1 Solitary pulmonary nodule (principal) | CPT/HCPCS: 78816; A9552 ==

== ENCOUNTER 2023-11-15 15:21 | Emergency (ER) | payer OTHER, SELFPAY ==
[2023-11-15 15:22] VITALS: BP 132/67
[2023-11-15 15:47] LABS: % Basophils 0.7 % (0-2); % Eosinophils 3.9 % (0-6); % Immature Granulocytes 0.3 % (0-0.5); % Lymphocytes 16.7 % (20.5-51.1); % Neutrophils 69.4 % (42.2-75.2); Absolute Basophils 0.1 10^3/uL (0-0.2); Absolute Eosinophils 0.4 10^3/uL (0-0.7); Absolute Lymphocytes 1.8 10^3/uL (1.2-3.4); Absolute Neutrophils 7.5 10^3/uL (1.4-6.5); Hematocrit 42.4 % (39.0-52.0); Hemoglobin 13.5 g/dL (13.0-18.0); Mean Corp Hgb Conc. 31.8 g/dL (33.0-37.0); Mean Corpuscular Volume 81.7 fL (80.0-94.0); Mean Platelet Volume 9.2 fL (7.4-10.4); Nucleated Red Blood Cells % 0 % (-); Platelet Count 236 10^3/uL (130-400); Red Blood Cell Count 5.19 10^6/uL (4.70-6.10); White Blood Cell Count 10.8 10^3/uL (4.8-10.8)
[2023-11-15 15:49] LABS: Urine Albumin 1+ (Neg - Trace); Urine Bilirubin Negative (Negative); Urine Character Very Cloudy (Clear); Urine Color Yellow; Urine Glucose Negative (Negative); Urine Ketone Negative (Negative); Urine Leukocyte 2+ (Negative); Urine Nitrite Negative (Negative); Urine Occult Blood 4+ (Negative); Urine Specific Gravity 1.015 (<1.030); Urine Urobilinogen Negative (Neg - 1+)
--- NOTE | 2023-11-15 15:53 | ED.GENMED ---
Addendum entered and electronically signed by Nga Oneill NP 11/20/23 08:26:
Message left on patient's phone to call back regarding final urine culture results which indicate resistance to Cipro and patient was discharged on Cipro.
Original Note:
History of Present Illness
General
Chief Complaint: Male Genito-Urinary Symptoms
Time Seen by Provider: 11/15/23 15:53
History of Present Illness
History of Present Illness:
HPI: The patient presents with dysuria. He had a similar episode a few months ago that required hospitalization. However at that time and review of old records, the patient had evidence of sepsis. He has not had fevers recently.
EXAM:
GENERAL: Well appearing in no distress
HEENT: Moist oral mucosa
CARDIOVASCULAR: No murmurs, normal heart rate, regular rhythm, No chest wall tenderness
PULMONARY: No respiratory distress, breath sounds are clear and equal
ABDOMEN: Soft with no peritoneal signs, no tenderness, there is no CVA tenderness
NEUROLOGIC: Excellent strength all extremities, no coordination deficits
PSYCHIATRIC: Appropriate mental status, normal insight and judgement
EXTREMITIES: Nontender, no edema, moves all extremities equally
SKIN: No rash, no lesions
TIME OF INITIAL ENCOUNTER: 4 PM
NUMBER AND COMPLEXITY OF PROBLEMS ADDRESSED AT THE ENCOUNTER
� Chronic conditions affecting care: A-fib, high blood pressure, hyperlipidemia
� Acute Exacerbation and/or Progression of Chronic Illness: This is an acute but recurring problem
� Differential Diagnosis includes: UTI, pyelonephritis, viral syndrome
AMOUNT AND/OR COMPLEXITY OF DATA TO BE REVIEWED AND ANALYZED
� I performed an independent evaluation of and my interpretation is:
EKG:
CT:
X-rays:
Laboratory Studies: White count normal, lactic normal, urinalysis shows very cloudy yellow urine with 26-30 white cells per high-power field
Other:
� Review of other/old records: I reviewed the records. The patient was admitted with sepsis/UTI August 07 through August 11, 2023. At that time his urine culture was positive for Klebsiella. At that time his initial white count was
over 30 and then normalized to 7.8 by discharge. His blood cultures were negative then. He was discharged on cefdinir.
� Clinical information was obtained by an independent historian: I spoke to the daughter at bedside
� Prescriptions/Medications Considered but not given: Considered using cefdinir again however family states that he had to be given additional antibiotics after last admission and are interested in trying thing different�will use
Cipro after discussing risks and benefits (could lead to some confusion)
� Further testing considered but not performed: Considered CT imaging as she did have some hematuria however he just had a CT in August and at that time did not show kidney stone.
RISK OF COMPLICATIONS AND/OR MORBIDITY OR MORTALITY OF PATIENT MANAGEMENT
� Social determinants of health affecting care: Lives at home with daughter
� Discussion with other providers:
� Escalation of care including admission/observation vs risk of discharge considered: On last admission, the patient had evidence of sepsis. Currently, his white count and vital signs are not consistent with sepsis. He is very
well-appearing.
Past History
Past History
ED Past Medical History: Arrthythmia, HTN, Hypercholesterolemia, Other and Other
ED Past Surgical History: Orthopedic, Tonsilectomy and Other
Social History
Tobacco: Former smoker
Alcohol: Occasional
Personal:
Living: with family
Employment: Retired
Family History
Family History: CAD
Phy Exam
Physical Exam
Physical Exam:
See HPI
Course
Orders/Labs/Results
Orders:
Orders
11/15/23 15:32
Complete Blood Count/With Diff Urgent
Comprehensive Metabolic Panel Urgent
Lactate Level [Lactic Acid] Q4H
11/15/23 15:33
Urinalysis Reflex To Culture Urgent
Date Specimen was Collected: 11/15/23
Time Specimen was Collected: 15:25
Urine Microscopic Reflex Cult Urgent
Urine Culture Urgent
TIEN Source: U
Specimen Description:
Date Specimen was Collected: 11/15/23
Time Specimen was Collected: 15:25
11/15/23 16:21
Ciprofloxacin HCl [Cipro] 500 mg PO NOW STA
11/15/23 19:30
Lactate Level [Lactic Acid] Q4H
Abnormal Lab Results
11/15/23 11/15/23
15:32 15:33
MCH 26.0 L pg
(27.0-31.0)
MCHC 31.8 L g/dL
(33.0-37.0)
RDW 19.0 H %
(11.5-14.5)
Absolute Neuts (auto) 7.5 H 10^3/uL
(1.4-6.5)
Absolute Monos (auto) 1.0 H 10^3/uL
(0.1-0.6)
Lymphocytes % 16.7 L %
(20.5-51.1)
Glucose 123 H mg/dl
(70-99)
Ur Occult Blood Reflex 4+ A
(Negative)
Leukocyte Esterase Rfl 2+ A
(Negative)
Urine RBC 7-10 A /HPF
(0-2)
Urine WBC (Reflex) 26-30 A /HPF
(0-5)
Urine Bacteria (Reflex) Moderate A
(Negative)
Urine Albumin (Reflex) 1+ A
(Neg - Trace)
11/15/23 15:32
11/15/23 15:32
Vital Signs
Initial and Last Documented VS:
Initial Vital Signs
Temp Pulse Resp BP Pulse Ox
98.4 F 87 16 132/67 97
11/15/23 15:22 11/15/23 15:22 11/15/23 15:22 11/15/23 15:22 11/15/23 15:22
Last Documented Vital Signs
Temp Pulse Resp BP Pulse Ox
98.4 F 87 16 132/67 97
11/15/23 15:22 11/15/23 15:22 11/15/23 15:22 11/15/23 15:22 11/15/23 15:22
*Critical Care Note
Total Time (30-74mins, 75-104mins- exclusive of procedures): Not Applicable
ED Attending Note
-
Portions of this chart may have been created with voice recognition software.� Occasional wrong word or��sound alike� substitutions may have occurred due to the inherent limitations of voice recognition software.
Discharge Plan
Departure
Patient Disposition: Home (Routine Discharge)
Date of Disposition: 11/15/23
Time of Disposition: 16:23
Patient with high blood pressure during this ER visit?: Yes
Discharge Problem:
Urinary tract infection
Instructions: BLOOD PRESSURE, Urinary Tract Infection - Men
Prescriptions:
New
ciprofloxacin HCl 500 mg tablet
500 mg PO BID Qty: 14 0RF
No Action
allopurinol 300 MG tablet
300 mg PO DAILY
testosterone cypionate 200 mg/mL Kit
240 mg IM Q3W Qty: 0
Patient Comments:
08/08/2023: 1.2ml
metoprolol succinate 50 MG tablet extended release 24 hr
25 mg PO DAILY
Ocuvite with Lutein 1 EACH tablet
1 ea PO BID
Glucosamine Sulf-Chondroitin 1 EACH capsule
1 cap PO DAILY
amitriptyline 10 MG tablet
10 mg PO HS Qty: 0 0RF
[place]-3 Plus Vitamin D3 1 EACH capsule
1 tablets PO DAILY
lisinopril 10 MG tablet
10 mg PO DAILY
Eliquis 5 MG tablet
5 mg PO BID
multivitamin Tablet
1 tab PO DAILY
metoprolol succinate 50 mg Tablet Extended Release 24 Hr
50 mg PO QPM
spironolacton-hydrochlorothiaz 25-25 mg Tablet
1 tab PO DAILY
omeprazole 40 mg Capsule,Delayed Release(Dr/Ec)
40 mg PO DAILY
cyanocobalamin (vitamin B-12) [Vitamin B-12] 500 mcg Tablet
1,000 mcg PO DAILY
tamsulosin 0.4 mg capsule
0.4 mg PO DAILY
cholecalciferol (vitamin D3) [Vitamin D3] 25 mcg (1,000 unit) Tablet
50 mcg PO DAILY
folic acid 1 mg Tablet
1 mg PO DAILY Qty: 30 0RF
cefdinir 300 mg capsule
300 mg PO BID Qty: 20 0RF
Referrals:
Hiram Lima MD [Family Provider] -
Activity Restrictions/Additional Instructions:
Next dose of Cipro tomorrow morning. Lactic acid and white are both within normal limits and vital signs are not consistent with sepsis. There was concern for sepsis last admission, but not today. Return here if worse. Follow-up Dr. Lima.
Interventions
Interventions:
*Risk Screen - Suicide Last Done: 11/15/23 15:58
*General Assessment Last Done: 11/15/23 15:58
*Neglect/Abuse Screening Last Done: 11/15/23 15:58
ED- Fall Risk Assessment Last Done: 11/15/23 15:58
*ED COVID-19 Vaccine History Last Done: 11/15/23 15:58
ED-Male Genitourinary Assessment Last Done: 11/15/23 15:58
Discharge Date and Time
Print Language: SERBIAN
[2023-11-15 15:58] VITALS: BMI 21.9
[2023-11-15 16:01] LABS: Lactic Acid 1.7 mmol/L (0.7-2.0)
[2023-11-15 16:01] LABS: Urine Bacteria Moderate (Negative)
[2023-11-15 16:02] LABS: Urine White Cell 26-30 /HPF (0-5)
[2023-11-15 16:03] LABS: ALT (SGPT) 18 U/L (0-50); AST (SGOT) 25 U/L (17-59); Albumin 4.1 g/dl (3.5-5.0); Alkaline Phosphatase 69 U/L (38-126); Blood Urea Nitrogen 14 mg/dl (9-20); Calcium 9.4 mg/dl (8.4-10.2); Carbon Dioxide 26 mmol/L (22-30); Chloride 100 mmol/L (98-107); Estimated Creatinine Clearance 53 ml/min; Glucose 123 mg/dl (70-99); Potassium 3.8 mmol/L (3.5-5.1); Sodium 135 mmol/L (135-145); Total Bilirubin 0.4 mg/dl (0.2-1.3); Total Protein 7.1 g/dl (6.3-8.2); eGFR > 60.00
[2023-11-15] MEDS: CIPRO 500 MG PO (16:26)
--- NOTE | 2023-11-20 11:24 | ED.ADDNOTE ---
ED Addendum
ED Addendum
ED Addendum Note:
Pt called, informed of culture results, states symptoms are much better but still with mild discomfort with urination. Rx for Augmentin 850 mg BID x 7 days sent to his pharmacy.
== END 2023-11-15 16:33 | disposition home or self-care (01) ==
LOC: EMR 15:21
PROVIDERS: Emergency Medicine; EMERGENCY PHYSICIAN Emergency Medicine; FAMILY PHYSICIAN Family Medicine
DX: N39.0 Urinary tract infection, site not specified (principal); I10 Essential (primary) hypertension; E78.00 Pure hypercholesterolemia, unspecified; Z82.49 Family history of ischemic heart disease and other diseases of the circulatory system; Z87.891 Personal history of nicotine dependence
CPT/HCPCS: 99283; 80053; 81003; 81015; 83605; 85025; 87077; 87086; 87186

== ENCOUNTER 2023-12-16 07:00 | Day surgery (SDC) | payer OTHER, SELFPAY ==
[2023-12-16] VITALS (10 sets, daily range): BP systolic 123–147; BP diastolic 66–81; BMI 25.7
[2023-12-16] MEDS: ELAVIL 10 MG PO (21:20)
[2023-12-16] MEDS: TYLENOL 650 MG PO (22:15)
[2023-12-17 03:27] VITALS: BP 132/72
--- NOTE | 2023-12-17 06:05 | PTCARENOTE ---
Removed rojas at 0555 as per order. Patient tolerated well, no complaints at this time.
--- NOTE | 2023-12-17 06:48 | W.PN.URO.CBU ---
Today's Communication / Plan
-
voiding trial then home
Assessment / Plan
-
Staples out ~ 45 minutes ago
Diagnosis
-
Date of Service: December 17, 2023
-
Patient Diagnosis:
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
Subjective
-
'no pain'
Objective
-
Vital Signs
Temp Pulse Resp BP Pulse Ox
97.5 F 91 16 132/72 96
12/17/23 03:27 12/17/23 03:27 12/17/23 03:27 12/17/23 03:27 12/17/23 03:27
Intake and Output
12/15/23 12/16/23 12/17/23
06:59 06:59 06:59
Intake Total 610 / 610
Output Total 3825 / 3825
Balance -3215 / -3215
Intake:
Oral fluids 410 / 410
IV fluids (Total) 200 / 200
Normosol 200 / 200
Output:
True Urine Output from [facility] 3825 / 3825
Physical Exam
-
General - well developed, well nourished, no acute distress
Abdomen - soft, non-tender, positive bowel sounds, no CVAT, no incisional pain or distention
[2023-12-17 07:25] VITALS: BP 135/75
[2023-12-17] MEDS: VISBIOME 1 CAP PO (08:00)
[2023-12-17] MEDS: ZESTRIL 10 MG PO (08:00)
[2023-12-17] MEDS: ALDACTONE 25 MG PO (08:01)
[2023-12-17] MEDS: ORETIC 25 MG PO (08:01)
[2023-12-17] MEDS: ZYLOPRIM 300 MG PO (08:02)
[2023-12-17] MEDS: PROTONIX 40 MG PO (08:02)
[2023-12-17] MEDS: TOPROL XL 25 MG PO (08:02)
[2023-12-17] MEDS: VITAMIN D3 (cholecalciferol) 50 MCG PO (08:02)
[2023-12-17] MEDS: TYLENOL 650 MG PO (08:17)
--- NOTE | 2023-12-17 10:54 | CM ---
Reviewed the chart notes and spoke with the patient and his daughter at the bedside. The patient's daughter and grandchildren recently moved in with the patient. The home is a two story with one step to enter. The patient has a complete first
floor master suite on first level. The patient has in home if needed: rolling walker, cane, shower chair, and shower grab bar. The patient reports no VN or SNF in the past. The patient confirmed his pharmacy of choice is the [facility] [address] continues to be available to patient/family and is monitoring medical plan for needs at discharge.
Plan: Discharge to home when medically stable. No needs anticipated.
[2023-12-17 11:17] VITALS: BP 120/64
== END 2023-12-17 12:18 | disposition home or self-care (01) ==
LOC: SDS 07:00
PROVIDERS: ATTENDING PHYSICIAN Specialist; FAMILY PHYSICIAN Family Medicine
DX: N40.1 Benign prostatic hyperplasia with lower urinary tract symptoms (principal); N41.1 Chronic prostatitis; B96.20 Unspecified Escherichia coli [E. coli] as the cause of diseases classified elsewhere; C61 Malignant neoplasm of prostate
CPT/HCPCS: 52601; 88305; 88344; J1335

== ENCOUNTER → 2024-02-19 10:22 | Outpatient (REF) | payer OTHER, SELFPAY | LOC: RAD 10:22 | PROVIDERS: ATTENDING PHYSICIAN Nurse Practitioner Adult Health; FAMILY PHYSICIAN Family Medicine | DX: R91.1 Solitary pulmonary nodule (principal) | CPT/HCPCS: 71250 ==

== ENCOUNTER → 2024-05-23 14:21 | Outpatient (REF) | payer OTHER, SELFPAY | LOC: RCS 14:21 | PROVIDERS: ATTENDING PHYSICIAN Internal Medicine Cardiovascular Disease; FAMILY PHYSICIAN Family Medicine | DX: I48.0 Paroxysmal atrial fibrillation (principal) | CPT/HCPCS: 93306 ==

== ENCOUNTER → 2024-09-13 10:25 | Outpatient (REF) | payer OTHER, SELFPAY | LOC: RAD 10:25 | PROVIDERS: ATTENDING PHYSICIAN Internal Medicine Critical Care Medicine; FAMILY PHYSICIAN Family Medicine | DX: R91.1 Solitary pulmonary nodule (principal) | CPT/HCPCS: 71250 ==

== ENCOUNTER 2024-11-02 09:27 | Emergency (ER) | payer OTHER, SELFPAY ==
[2024-11-02 10:00] VITALS: BP 123/91
--- NOTE | 2024-11-02 10:48 | ED.GENMED ---
History of Present Illness
General
Chief Complaint: Skin Surface Trauma
Time Seen by Provider: 11/02/24 10:47
History of Present Illness
History of Present Illness:
PAST MEDICAL HISTORY AND REVIEW OF OLD RECORDS
- The patient is on Eliquis for history of atrial fibrillation. I reviewed records, the patient had TURP 12/16/2023
Note:
CHIEF COMPLAINT(S)
Bleeding from the toenail.
HISTORY OF PRESENT ILLNESS
The patient is an 83-year-old male with a history of atrial fibrillation, currently on apixaban (Eliquis), who presents with bleeding after attempting to trim his toenails. The patient accidentally cut the skin at the end of the toe, which led to
bleeding. His ability to trim his toenails is further complicated by vision issues. There is no active bleeding noted at present, but the patient described the initial bleeding as heavy. The patient is currently being aided by his family in managing
toenail care, but a referral to a toe stapler is advised. There is a suggestion to avoid self-trimming of toenails due to this bleeding risk.
PHYSICAL EXAM
General: Alert, no acute distress.
Skin: Warm, dry. There is a 1.5 cm skin avulsion to the right great toe at the distalmost aspect.
Back: Normal range of motion, Normal alignment.
Musculoskeletal: Normal ROM, normal strength.
Neurological: Alert and oriented to person, place, time, and situation, No focal neurological deficit observed.
Psychiatric: Cooperative, appropriate mood & affect.
PLAN
1. Apply a bulky dressing to the affected area to prevent further bleeding.
2. Update tetanus status as patient was unsure of current vaccination status.
3. Encourage the patient to see a toe stapler for future toenail care to prevent similar incidents.
DIFFERENTIAL DIAGNOSIS
The Differential Diagnosis includes, in no particular order and is not limited to:
1. Atrial fibrillation-related bleeding
2. Trauma-related skin laceration
3. Anticoagulant-related bleeding
4. Vision impairment complications
5. Hemophilia
6. Peripheral vascular disease
7. Diabetes-related skin issues
8. Anemia
9. Vitamin K deficiency
10. Chronic venous insufficiency
SUMMARY OF ENCOUNTER
The patient, an 83-year-old male with a history of atrial fibrillation on apixaban, presented to the emergency department with bleeding from the toenail after attempting to trim it himself. This incident was exacerbated by the patients vision
issues. Upon examination, no active bleeding was noted, but a bulky dressing including Surgicel was applied to the affected area to prevent further bleeding. Given his current anticoagulation therapy, the risk of increased bleeding was acknowledged.
The recommendation is to seek podiatric care for toenail management to prevent future occurrences.
PLAN
1. Apply a bulky dressing to the affected area to prevent further bleeding.
2. Update tetanus vaccination status as uncertain.
3. Encourage referral to or visit with a toe stapler for ongoing toenail care.
MEDICAL DECISION MAKING
- Number and Complexity of Problems Addressed: Chronic conditions affecting care are atrial fibrillation and vision impairment.
- Data:
Category 1
My independent interpretation of the patients bleeding risk due to anticoagulation therapy was assessed and managed appropriately through non-invasive intervention with a bulky dressing.
Category 3
Discussion of management with other healthcare providers: Discussed the importance of professional toenail care with the family to mitigate future bleeding risks.
- Risk:
Prescription drug management with apixaban noted as a contributing factor to bleeding risk. Consideration of Admission/Observation: However, ultimately the patient is considered safe for outpatient management with close follow-up due to stable vital
signs and controlled symptoms.
DIAGNOSIS
1. Hemorrhage from skin laceration due to self-trimming of toenails in a patient on anticoagulation therapy (ICD-10: R58).
Past History
Past History
ED Past Medical History: Arrthythmia, HTN, Hypercholesterolemia, Other and Other
ED Past Surgical History: Orthopedic, Tonsilectomy and Other
Social History
Tobacco: Former smoker
Alcohol: Occasional
Personal:
Living: with family
Employment: Retired
Family History
Family History: CAD
Phy Exam
Physical Exam
Physical Exam:
See HPI
Course
Orders/Labs/Results
Orders:
Orders
11/02/24 11:25
Tetanus/Diphth/Acelpertussis [Adacel] 0.5 ml IM .ONCE ONE
Vital Signs
Initial and Last Documented VS:
Initial Vital Signs
Temp Pulse Resp BP Pulse Ox
36.6 C 68 18 123/91 97
11/02/24 10:00 11/02/24 10:00 11/02/24 10:00 11/02/24 10:00 11/02/24 10:00
Last Documented Vital Signs
Temp Pulse Resp BP Pulse Ox
36.6 C 68 18 123/91 97
11/02/24 10:00 11/02/24 10:00 11/02/24 10:00 11/02/24 10:00 11/02/24 10:49
*Pulse Oximetry
SaO2: 97
Oxygen Mode of Delivery: Room air
Patient hypoxic: no
*Critical Care Note
Total Time (30-74mins, 75-104mins- exclusive of procedures): Not Applicable
ED Attending Note
-
Portions of this chart may have been created with voice recognition software.� Occasional wrong word or��sound alike� substitutions may have occurred due to the inherent limitations of voice recognition software.
Discharge Plan
Departure
Patient Disposition: Home (Routine Discharge)
Date of Disposition: 11/02/24
Time of Disposition: 11:25
Patient with high blood pressure during this ER visit?: Yes
Discharge Problem:
Avulsion of skin
Instructions: Wound Care (DC), BLOOD PRESSURE
Prescriptions:
No Action
allopurinol 300 MG tablet
300 mg PO DAILY
testosterone cypionate 200 mg/mL Kit
240 mg IM Q3W Qty: 0
Patient Comments:
1.2 ml
metoprolol succinate 50 MG tablet extended release 24 hr
25 mg PO DAILY
Ocuvite with Lutein 1 EACH tablet
1 ea PO DAILY
Glucosamine Sulf-Chondroitin 1 EACH capsule
1 cap PO DAILY
amitriptyline 10 MG tablet
10 mg PO HS Qty: 0 0RF
[place]-3 Plus Vitamin D3 1 EACH capsule
3 tablets PO DAILY
lisinopril 10 MG tablet
10 mg PO DAILY
Eliquis 5 MG tablet
5 mg PO BID
multivitamin Tablet
1 tab PO DAILY
metoprolol succinate 50 mg Tablet Extended Release 24 Hr
50 mg PO QPM
spironolacton-hydrochlorothiaz 25-25 mg Tablet
1 tab PO DAILY
omeprazole 40 mg Capsule,Delayed Release(Dr/Ec)
40 mg PO DAILY
cyanocobalamin (vitamin B-12) [Vitamin B-12] 500 mcg Tablet
1,000 mcg PO DAILY
tamsulosin 0.4 mg capsule
0.4 mg PO DAILY
cholecalciferol (vitamin D3) [Vitamin D3] 25 mcg (1,000 unit) Tablet
50 mcg PO DAILY
folic acid 1 mg Tablet
1 mg PO DAILY Qty: 30 0RF
Align (B.infantis) 4 mg Capsule
4 mg PO DAILY
amoxicillin-pot clavulanate 875-125 mg tablet
1 tab PO BID Qty: 20 0RF
Referrals:
Gretta Alexandra DPM [Active, Podiatry]
Activity Restrictions/Additional Instructions:
I have given you the contact information of her local toe stapler, Dr. Alexandra. We placed Surgicel to the affected area. This will help to prevent rebleeding. I would just leave this on for today and then you can take it off later this evening or
tomorrow morning and just place a Band-Aid over top. Return here if worse or other concerns.
Interventions
Interventions:
*Risk Screen - Suicide Last Done: 11/02/24 10:00
*General Assessment Last Done: 11/02/24 10:00
*ED- Fall Risk Assessment Last Done: 11/02/24 10:58
ED-Skin Assessment Last Done: 11/02/24 10:58
Discharge Date and Time
Print Language: ESTONIAN
[2024-11-02] MEDS: ADACEL 0.5 ML IM (11:43)
== END 2024-11-02 12:40 | disposition home or self-care (01) ==
LOC: EMR 09:27
PROVIDERS: EMERGENCY PHYSICIAN Emergency Medicine; FAMILY PHYSICIAN Family Medicine
DX: S91.201A Unspecified open wound of right great toe with damage to nail, initial encounter (principal); W27.8XXA Contact with other nonpowered hand tool, initial encounter; I48.91 Unspecified atrial fibrillation; E78.00 Pure hypercholesterolemia, unspecified; I10 Essential (primary) hypertension; Z79.01 Long term (current) use of anticoagulants; Z87.891 Personal history of nicotine dependence; Z23 Encounter for immunization
CPT/HCPCS: 90471; 99282; 90715

== ENCOUNTER 2024-12-02 21:45 | Inpatient (IN) | payer OTHER, SELFPAY ==
[2024-12-02] VITALS (7 sets, daily range): BP systolic 98–131; BP diastolic 54–74; BMI 25.4; BMI 25.6
[2024-12-02 16:52] LABS: Hematocrit 39.6 % (39.0-52.0); Hemoglobin 12.2 g/dL (13.0-18.0); Mean Corp Hgb Conc. 30.8 g/dL (33.0-37.0); Mean Corpuscular Volume 72.1 fL (80.0-94.0); Nucleated Red Blood Cells % 0.2 % (-); Platelet Count 199 10^3/uL (130-400); Red Cell Dist. Width 21.0 % (11.5-14.5)
[2024-12-02 17:09] LABS: COVID-19 Antigen Negative (Negative)
[2024-12-02 17:18] LABS: ALT (SGPT) 17 U/L (0-50); AST (SGOT) 24 U/L (17-59); Albumin 3.9 g/dl (3.5-5.0); Alkaline Phosphatase 54 U/L (38-126); Blood Urea Nitrogen 25 mg/dl (9-20); Calcium 8.8 mg/dl (8.4-10.2); Carbon Dioxide 20 mmol/L (22-30); Chloride 100 mmol/L (98-107); Glucose 174 mg/dl (70-99); Potassium 3.8 mmol/L (3.5-5.1); Sodium 132 mmol/L (135-145); Total Protein 7.2 g/dl (6.3-8.2); eGFR 49.56
--- NOTE | 2024-12-02 19:16 | EDRN ---
Pt with 4-5 days of fever, diarrhea, weakness, lack of appetite. Pt went to doctor this morning and told probably has a viral illness. Son checked on pt around 1400, temp 103.6. Pt took tylenol. Doctor advised pt come to ED. Pt had 7 episodes
of diarrhea yesterday and 3 today. No blood in stool. No recent travel, ill contacts, antibiotics. Pt denies cp, sob, abd pain, syncope, falls.
--- NOTE | 2024-12-02 19:23 | ED.GENMED ---
History of Present Illness
General
Chief Complaint: Fever
Source: patient
Exam Limitations: none
Time Seen by Provider: 12/02/24 18:37
History of Present Illness
History of Present Illness:
84yoM with a history of atrial fibrillation, hypertension, hyperlipidemia, and colon cancer presenting with his son for evaluation of diarrhea. Patient has been experiencing diarrhea for the past 4 to 5 days. He had 7 bowel movements yesterday and
so far today. He is also having appetite, fatigue, and generalized weakness. Son states he is unsteady on his feet due to the weakness. He was seen by his PCP earlier today and was diagnosed with a viral illness. After the appointment, son
checked his temperature at home which was elevated at 103.6 at which point son decided to bring him to the ED. Patient denies any nausea, vomiting, chest pain, shortness of breath, abdominal pain. No recent travel, sick contacts, suspicious food
intake, or recent antibiotics.
Past History
Past History
ED Past Medical History: Arrthythmia, HTN, Hypercholesterolemia, Other and Other
ED Past Surgical History: Orthopedic, Tonsilectomy and Other
Social History
Tobacco: Former smoker
Alcohol: Occasional
Personal:
Living: with family
Employment: Retired
Family History
Family History: CAD
Phy Exam
General Physical Exam
General Presentation: well appearing and no apparent distress
General Skin: warm and dry
General Habitus: normal
General Mental: alert
ENT Exam
ENT Exam: normocephalic
Cardiovascular Exam
Cardiovascular Exam: regular rate/rhythm
Pulmonary Exam
Pulmonary Exam: lungs clear, no respiratory distress, no rales, no crackles, no rhonchi and no wheezing
Gastrointestinal Exam
Gastrointestinal Exam: soft, non distended and other (+LUQ and LLQ tenderness. Abdomen soft, non-distended. No rebound or guarding.)
Neurological Exam
Neurological Exam: alert
[place] Coma Scale
Eye Opening: Spontaneous
Verbal Response: Oriented
Motor Response: Obeys Commands
GCS Total Score: 15
Skin Exam
Skin Exam: normal color and warm/dry
Psychiatric Exam
Psychiatric Exam: normal mood/affect
Course
Orders/Labs/Results
Orders:
Orders
12/02/24 Breakfast
Clear Liquid
At Your Request: Full Participation
12/02/24 16:40
COVID-19 Antigen Urgent
Source: Nasal Swab
Complete Blood Count/With Diff Urgent
Comprehensive Metabolic Panel Urgent
Magnesium Urgent
Comment: ADD ON
Influenza A+B Rapid Molecular Urgent
TIEN Source: Nasal Swab
Specimen Description:
12/02/24 19:22
Add On- LAB Urgent
Tests Added?: mag
CDIFF [C difficile Antigen & Toxins] Urgent
TIEN Source: Feces/Stool
Specimen Description:
Stool Culture Urgent
TIEN Source: Feces/Stool
Specimen Description:
12/02/24 19:23
CT Abd/pelvis W Iv Cont Urgent
Comment:
Reason For Exam: L sided abd pain, diarrhea
12/02/24 19:28
Lactate Level [Lactic Acid] Urgent
12/02/24 19:38
0.9% Sodium Chloride 500 ml [Nss] 500 ml IV BOLUS
12/02/24 21:06
Piperacillin/Tazo 4.5 Gram [Zosyn] 4.5 gram in 100 ml IV NOW
12/02/24 21:26
Admit/Transfer Patient As Directed
Co-Sign Provider:
Level of Care: Inpatient admission
Assign to:: Telemetry
Physician / Group: ilana cobb
Diagnosis: diverticulitis
Reason for Telemetry: Arrhythmia
Date to Stop Telemetry: 12/05/24
Time to Stop Telemetry: 11:00
Reason for Hospitalization: diverticulitis
Expected length of stay greater than two midnights?: Yes
ELOS- Estimated Length of Stay in days: 3
I certify the patient meets the requirements for IP care: Yes
PRN Pain Medication Management As Directed
May give lesser potent ordered pain med per pt: Yes
preference::
Protocol:: Medication orders for pain may be administered in a
manner that supports deferring to patient preference
when the pt is:
- Requesting an ordered lesser potent pain medication.
Least to most potent pain medications are defined
as: acetaminophen < NSAID < tramadol < opioids
(morphine, oxycodone, hydromorphone).
- Requesting a lesser dose of the same medication IF
ORDERED.
- Requesting a less intrusive route of administration
if both routes are prescribed by the provider (PO <
IV).
12/02/24 21:27
Code Status As Directed
Resuscitation Status: Full Code
12/02/24 21:30
EKG [Electrocardiogram (*1)] Stat
Reason for Study: Atrial Fibrillation
12/02/24 23:42
0.9% Sodium Chloride 1000 ml [Nss] 1,000 ml IV 80 mls/hr
0.9% Sodium Chloride [Nss (Preservative Free)] See Protocol IV PRN PRN
Acetaminophen [Tylenol] 650 mg PO Q4HPRN PRN
Amitriptyline [Elavil] 10 mg PO HS
Dextrose 50%-Water [Dextrose 50% Syringe] 12.5 grams IV [id number] PRN
FOLic ACID [Folvite] 1 mg 0.9% Sodium Chloride 50 ml [Nss] 50 ml IV DAILYPRN
Glucagon [GlucaGen] 1 mg IM PRN PRN
Lorazepam [Ativan] 1 mg IV Q1HPRN PRN
Lorazepam [Ativan] 1 mg PO Q2HPRN PRN
Lorazepam [Ativan] 2 mg IV Q1HPRN PRN
Piperacillin/Tazo 3.375 Gram [Zosyn] 3.375 gram in 50 ml IV Q6H
12/02/24 23:42
Case Management Consult Once
Case Management Consult: Other
Comment: Substance abuse counseling
Consult Colorectal Surgery [ColoRectal Surgery Consult] Routine
Consulting Provider: Jae Hicks
Was physician already notified: Yes
DIETARY IP CONSULT Routine
Reason for Consult: Nutrition support, possible refeeding guidelines
Alcohol Urgent
B-Hydroxybutyrate Urgent
GGTP Urgent
Magnesium Urgent
PTT Urgent
Phosphorus Urgent
Prothrombin Time Urgent
Urinalysis Routine
Activity As Directed
Activity Level: As Tolerated
Bedside Glucose Monitoring As Directed
Frequency: AC&HS
Additional Instructions:: Change to q6h if pt on TPN, tube feeding or not eating
MSAS SCORE As Directed
MSAS Score 0-4: Repeat MSAS every 2 hours until 0-4 for three consecutive assessments, then every 4 hours x 48
hours.
MSAS Score 5-7: For MILD withdrawl symptoms. Repeat MSAS and RASS every 2 hours
MSAS Score 8-11: For MODERATE withdrawal symptoms. Repeat MSAS and RASS every 1 hour. Consider ICU or IMU
level of care.
MSAS Score > 11: For SEVERE withdrawal symptoms. Repeat MSAS and RASS every 1 hour. Notify provider, consider
ICU level of care.
MSAS Additional Instructions: If no improvement or no decrease in score from severe to moderate within 12
hours, consult psychiatry
MSAS Notify Provider: Notify provider if patient requires more than 10 mg of Lorazepam in eight hour period.
Pneumatic Compression Sleeves As Directed
Type: Knee high
Vital Signs As Directed
Frequency: Per unit guidelines
Pt Eval And Treat Routine
Activity Level: As Tolerated
DX Deep Vein Thrombosis Video Routine
12/03/24 06:00
Basic Metabolic Panel IN AM
Glycohemoglobin (HgbA1c) IN AM
Occupational Therapy Consult [Ot Eval And Treat] IN AM
12/03/24 07:30
Insulin Aspart Corrective Low [Novolog Flexpen-Low Resistance] See Protocol SC AC
12/03/24 08:00
Allopurinol [Zyloprim] 300 mg PO DAILY
FOLic ACID [Folvite] 1 mg PO DAILY
Metoprolol Xl [Toprol Xl] 25 mg PO DAILY
Thiamine Injection 200 mg IV Q12
omeprazole 40 mg PO DAILY
12/03/24 18:00
Metoprolol Xl [Toprol Xl] 50 mg PO QPM
12/04/24 06:00
Basic Metabolic Panel IN AM
12/05/24 06:00
Basic Metabolic Panel IN AM
12/05/24 11:00
DC Protocol for Telemetry ONCE
12/06/24 06:00
Basic Metabolic Panel IN AM
12/06/24 08:00
Thiamine HCl [Vitamin B1] 100 mg PO BID
Abnormal Lab Results
12/02/24
16:40
Hgb 12.2 L g/dL
(13.0-18.0)
MCV 72.1 L fL
(80.0-94.0)
MCH 22.2 L pg
(27.0-31.0)
MCHC 30.8 L g/dL
(33.0-37.0)
RDW 21.0 H %
(11.5-14.5)
Absolute Neuts (auto) 8.1 H 10^3/uL
(1.4-6.5)
Absolute Lymphs (auto) 0.7 L 10^3/uL
(1.2-3.4)
Absolute Monos (auto) 1.3 H 10^3/uL
(0.1-0.6)
Neutrophils % 79.0 H %
(42.2-75.2)
Lymphocytes % 7.0 L %
(20.5-51.1)
Monocytes % 12.7 H %
(1.7-9.3)
Sodium 132 L mmol/L
(135-145)
Carbon Dioxide 20 L mmol/L
(22-30)
BUN 25 H mg/dl
(9-20)
Creatinine 1.4 H mg/dL
(0.7-1.3)
Glucose 174 H mg/dl
(70-99)
12/02/24 16:40
12/02/24 16:40
Vital Signs
Initial and Last Documented VS:
Initial Vital Signs
Temp Pulse Resp BP Pulse Ox
99.8 F 121 20 98/54 95
12/02/24 16:32 12/02/24 16:32 12/02/24 16:32 12/02/24 16:32 12/02/24 16:32
Last Documented Vital Signs
Temp Pulse Resp BP Pulse Ox
98.4 F 95 21 106/67 95
12/02/24 19:17 12/02/24 23:00 12/02/24 23:00 12/02/24 23:00 12/02/24 19:25
MDM/Problems Addressed
Differential Diagnosis Includes:
84yoM here with diarrhea and weakness x 4-5 days. Spiked a fever of 103.6 at home today. Temp 99.8 on arrival although he did take Tylenol prior to arrival. HR 121 in triage. Patient is nontoxic-appearing. He denied any abdominal pain although
does left-sided abdominal tenderness on exam. No signs of peritonitis. Differential diagnosis includes but is not limited to: Viral illness, gastroenteritis, diverticulitis, dehydration
Initial ED plan: Workup initiated in triage. Creatinine 1.4, slightly above baseline of 0.8-1. Sodium 132. White count normal. COVID/flu testing negative. Will check lactate, stool studies, and CT abdomen. IV fluid bolus.
*Pulse Oximetry
SaO2: 95
Oxygen Mode of Delivery: Room air
Patient hypoxic: no (95%)
*Critical Care Note
Total Time (30-74mins, 75-104mins- exclusive of procedures): Not Applicable
Update Note
Update Note:
Lactate within normal limits. CT shows acute diverticulitis without perforation or abscess. Given SOHAN and high fever earlier today, will admit. IV Zosyn ordered and patient admitted for further management.
ED Attending Note
-
Portions of this chart may have been created with voice recognition software.� Occasional wrong word or��sound alike� substitutions may have occurred due to the inherent limitations of voice recognition software.
Discharge Plan
Departure
Patient Disposition: Admit
Date of Disposition: 12/02/24
Time of Disposition: 21:07
Presentation/result/management discussed w/ accepting MD/DO: Hospitalist
Discharge Problem:
Acute diverticulitis, Acute kidney injury
Interventions
Interventions:
*Risk Screen - Suicide Last Done: 12/02/24 16:32
*General Assessment Last Done: 12/02/24 16:32
*Neglect/Abuse Screening Last Done: 12/02/24 19:16
*ED- Fall Risk Assessment Last Done: 12/02/24 19:36
*Nursing Disposition Last Done: 12/02/24 23:31
ED- Neurological Assessment Last Done: 12/02/24 19:36
ED-Skin Assessment Last Done: 12/02/24 19:36
Discharge Date and Time
Discharge Date/Time: 12/02/24 23:31
[2024-12-02] MEDS: NSS 500 IV (19:39)
[2024-12-02 20:08] LABS: Magnesium 1.6 mg/dl (1.6-2.3)
--- NOTE | 2024-12-02 21:09 | HPS.HSE ---
Family Physician
-
Family Physician: Hiram Lima
Chief Complaint
-
diarrhea
History of Present Illness
84yoM with a history of atrial fibrillation, hypertension, hyperlipidemia, and colon cancer presenting with his son for evaluation of diarrhea for past 5 days. stated left lower quadrant pain. denied n/v. stated poor appetite for past few days. he
had a temp of 103 at home today. patient stated generalized weakness and unsteady. denied chest pain, shortness of breath,. No recent travel, sick contacts, suspicious food intake, or recent antibiotics. denied RUDOLPH, dizzy or syncope. denied dysuria
or hematuria.
Ct with Diverticulitis. received normal saline, Zosyn in ER. admitting for further management.
Medical History
Past Medical History
Past Medical History: Reports Other
Additional Past Medical History:
Colon cancer, gout, GERD, hypogonadism, A-fib, hypertension, sleep apnea, prostate cancer
Past Surgical History: Reports Other
Additional Past Surgical History:
Right cataract surgery, colon resection, TURP
Social History
Tobacco: Former Smoker
Alcohol: Occasional
Drug: None
Personal: Single
Living: With Family
Family History
Family History: Not pertinent
Allergies / Home Medications
Allergies reflects when Allergies were last updated in [facility].
Home Medications with original date entered in [facility]
Allergy/Medication List:
Allergies
Allergy/AdvReac Type Severity Reaction Status Date / Time
No Known Allergies Allergy Verified 12/02/24 16:33
Home Medications
allopurinol 300 mg tablet 300 mg PO DAILY Gout 01/23/11
testosterone cypionate 200 mg/mL intramuscular kit 240 mg IM Q3W Hormonal Agent ##0 01/23/11
glucosamine sulfate dipotassium Cl 500 mg-chondroitin 400 mg capsule (Glucosamine Sulfate 2 KCL-Chondroitin) 1 cap PO DAILY Supplement 09/24/14
metoprolol succinate 50 mg tablet,extended release 24 hr 25 mg PO DAILY Blood Pressure 09/24/14
vit A 300 mcg-C 200 mg-E 27 mg-lutein 2 mg and minerals tablet (Ocuvite with Lutein) 1 ea PO DAILY Supplement 09/24/14
amitriptyline 10 mg tablet 10 mg PO HS ##0 09/27/14
omega-3 650 mg-dha 400 mg-epa 200 mg-fish oil-vit D3 300 unit capsule ([place]-3 Plus Vitamin D3) 3 tablets PO DAILY Supplement 06/14/16
lisinopril 10 mg tablet 10 mg PO DAILY Blood Pressure 12/03/18
metoprolol succinate 50 mg tablet,extended release 24 hr 50 mg PO QPM Blood Pressure 08/08/23
multivitamin 1 tab PO DAILY Supplement 08/08/23
omeprazole 40 mg capsule,delayed release 40 mg PO DAILY Gastrointestinal Issue 08/08/23
spironolactone 25 mg-hydrochlorothiazide 25 mg tablet 1 tab PO DAILY Blood Pressure 08/08/23
apixaban 5 mg tablet (Eliquis) 5 mg PO BID 12/02/24
cholecalciferol (vitamin D3) 50 mcg (2,000 unit) capsule (Vitamin D3) 50 mcg PO DAILY 12/02/24
cyanocobalamin (vitamin B-12) 1,000 mcg capsule 1,000 mcg PO DAILY 12/02/24
Review of Systems
-
Constitutional: Reports No Symptoms
EENT: Reports No Symptoms
Respiratory: Reports No Symptoms
Cardiac: Reports No Symptoms
Abdomen/GI: Reports Diarrhea
: Reports No Symptoms
Musculoskeletal: Reports No Symptoms
Skin: Reports No Symptoms
Neurological: Reports No Symptoms
Endocrine: Reports No Symptoms
Hematologic/Lymphatic: Reports No Symptoms
Psych: Reports No Symptoms
Physical Exam
Vital Signs
Vital Signs
Temp Pulse Resp BP Pulse Ox
98.4 F 98 20 108/59 95
12/02/24 19:17 12/02/24 20:35 12/02/24 20:35 12/02/24 20:35 12/02/24 19:25
Physical Exam
General: Well Developed, Well Nourished and No Apparent Distress
HEENT: NormoCephalic, Moist mucous membranes and Atraumatic
Respiratory: Clear
Cardiac: S1/S2 and Regular Rhythm; No Murmur or Rub
GI: Soft, Non Tender, Non Distended and Normal Bowel Sounds; No Organomegaly
Rectal: Deferred by Provider
Musculoskeletal: No Clubbing, No Cyanosis and No Edema
Skin: No Rash
Neuro: AO x 3 and Nonfocal/grossly intact
Psych: Calm
Laboratory Results
-
12/02/24 16:40
12/02/24 16:40
Laboratory Results
Lactic Acid 1.6 mmol/L (0.7-2.0) 12/02/24 19:28
Total Bilirubin 0.6 mg/dl (0.2-1.3) 12/02/24 16:40
AST 24 U/L (17-59) 12/02/24 16:40
ALT 17 U/L (0-50) 12/02/24 16:40
Alkaline Phosphatase 54 U/L (38-126) 12/02/24 16:40
Data Reviewed
-
CT Scan: Report Reviewed by me
Lab Data: Labs Reviewed by me
Impression/Plan
-
# Diarrhea/weakness/fever secondary to diverticulitis
- IV Zosyn continued
- Clear liquid diet for now
- CT abdomen pelvis with impression of Findings suggesting new acute diverticulitis. No evidence of perforation or abscess formation.Left adrenal mass. Stable from 2020 and no FDG avidity suggesting this is a benign adrenal adenoma Hepatic fatty
infiltration.. Stable Mild prostate hypertrophy. Improved
- C. difficile and stool culture
-pt/ot consult
# Hyponatremia/SOHAN secondary to dehydration
- Sodium 132, creatinine 1.4
- IV fluids
- BMP in a.m.
#Paroxysmal Atrial Fibrillation
-obtain EKG
- Continue metoprolol.
- hold Eliquis.
#essential HTn
-Bp soft in ER
-hold lisinopril, hctz, spironolactone
#Diet-Controlled DM-II
- Stable. Monitor glucose during stay and cover with SSI if needed.
#Gout
- Stable. Continue allopurinol.
#Alcohol Use Disorder
- Patient with 'at least' one drink per day.has not drink for past few days.
- Monitor for any signs / symptoms of withdrawal during stay and treat as needed.
DVT Prophylaxis: SCD
Code Status: Full
[2024-12-02] MEDS: ZOSYN 100 IV (21:11)
--- NOTE | 2024-12-02 21:21 | W.PN.UPDATE ---
Update Note
Progress Note Update
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
HPI�
84 Obese M, former smoker,
HX AF, HTN, HLD, BPH, ETOH use disorder seen at ER
- reports acute non bloody watery diarrhea and weakness x 4-5 days
- spiked a fever of 103.6 this afternoon. Temp 99.8 at ER .
- White count and lactate normal.
CT shows diverticulitis without abscess/perf.
Relevant VS
Temp Pulse Resp BP Pulse Ox
98.4 F 98 20 108/59 95
12/02/24 19:17 12/02/24 20:35 12/02/24 20:35 12/02/24 20:35 12/02/24 19:25
PE
Gen: NAD
HEENT: moist OM
Neck: supple
Lungs: CTA
Cor: RRR S1 S2
Abdomen:�Soft, Non Tender, Non Distended and Normal Bowel Sounds
BASE BRANDER: AAO3
MS: no edema
Psych: Nl mood and affect
Relevant Data
12/02/24
16:40
Hgb 12.2 L
MCV 72.1 L
MCH 22.2 L
MCHC 30.8 L
RDW 21.0 H
Absolute Neuts (auto) 8.1 H
Absolute Lymphs (auto) 0.7 L
Absolute Monos (auto) 1.3 H
Neutrophils % 79.0 H
Lymphocytes % 7.0 L
Monocytes % 12.7 H
Sodium 132 L
Carbon Dioxide 20 L
BUN 25 H
Creatinine 1.4 H
Glucose [address]/pelvis W Iv Cont
- new acute diverticulitis. No evidence of perforation or abscess formation.
- Left adrenal mass. Stable from 2020 and no FDG avidity suggesting this is a benign adrenal adenoma
- Hepatic fatty infiltration.. Stable
- Mild prostate hypertrophy. Improved
Last hospitalist admission: Date of Admission: 08/08/23 - Date of Discharge: 08/11/23
DC Dxs: Sepsis secondary to UTI. Hyponatremia. Incidental adrenal nodule
ASSESSMENT & PLAN
Acute uncomplicated diverticulitis without abscess/perf
- stool for C Diff and BCx sent
- Hold Eliquis for now
- Empiric IV Zosyn
- Clear and IVF
- PRN narcotic analgesia
- CRS consult
Benign HTN
- BP marginally hypotensive 0n the ED.
- Hold spironolactone / HCTZ acutely.
Paroxysmal AF HX
- Stable. Currently in sinus rhythm.
- on CEO NA metoprolol XL
- Hold Eliquis for now
Diet-Controlled DM-II
- Stable.
- Monitor glucose during stay and cover with SSI if needed.
Gout
- Stable.
- Continue allopurinol.
Obesity due to excess calories
- Affects all aspects of care.
Alcohol Use Disorder - Not drinking ETOH for last 72Hrs
At risk for ETOH WDS
- Patient with 'at least' one drink per day.
- Observe any signs / symptoms of withdrawal during stay and treat as needed.
- Thiamine, MVI, etc replacement.
DVT Prophylaxis: SCD while holding Eliquis
Code: Full
IP MS
[2024-12-03] VITALS (8 sets, daily range): BP systolic 97–129; BP diastolic 62–74; PULSE 117–152; O2SAT 96; BMI 25.6
[2024-12-03] MEDS: NSS 1000 IV ×2 (00:22→14:47)
[2024-12-03] MEDS: ELAVIL 10 MG PO ×2 (00:24→21:40)
[2024-12-03 00:37] LABS: INR 1.64; PT 19.6 Sec (11.4-14.6)
[2024-12-03 00:38] LABS: APTT 44.2 Sec (23.4-35.0)
[2024-12-03 00:40] LABS: GGTP 23 U/L (15-73); Magnesium 1.8 mg/dl (1.6-2.3)
[2024-12-03] MEDS: ZOSYN 50 IV ×4 (03:22→21:40)
--- NOTE | 2024-12-03 07:41 | W.PN.HOSP.TC ---
Addendum entered and electronically signed by Carmine Tripp MD 12/03/24 12:46:
Colorectal surgery/general surgery did asked to place Eliquis on hold for now. Will reevaluate when to restart then.
Original Note:
Today's Communication/Plan
-
Antibiotics.
Assessment / Plan
Assessment / Plan
Physical exam:
General: Well Developed, Well Nourished and No Apparent Distress
HEENT: Normocephalic, Atraumatic and Moist Mucous Membranes
Respiratory: Clear to Auscultation; Negative Wheezes, Rales or Rhonchi
Cardiac: Regular Rhythm and S1/S2
GI: Soft, Nontender and Nondistended, palpable hernia in the abdomen.
Musculoskeletal: No Clubbing, No Cyanosis and No Edema
Neuro: Awake, Alert and Oriented, no neurological deficit. No tremors
Psych: Calm
A/P:
Acute diverticulitis:
Continue CLD
Continue IV fluid
Continue IV antibiotics, Zosyn
Colorectal consulted on admission although not sure that they would do anything different at this junction.
He will require follow-up colonoscopy as outpatient and family tells me he does have serial colonoscopies from previous colon cancer.
Discussed with son at bedside today
Acute diarrhea:
Likely related to above
C. difficile negative
Stools pending for Salmonella, Campylobacter, Shiga toxin
SOHAN:
Improving
Creatinine down to 1.1, from 1.4 yesterday
Holding KIMANI inhibitor, spironolactone, HCTZ-might be able to resume tomorrow if renal function remains stable
On IVF
Hyponatremia:
Improving
Sodium up to 134 today, from 132
On isotonic fluid
History of recent ESBL UTI:
Appropriate contact precautions
Paroxysmal A-fib:
Continue rate control, metoprolol succinate 25 mg in the morning and 50 mg in the evening
Resume Eliquis tonight-I see no contraindication for such
Hypertension:
Continue home antihypertensives
Prediabetes mellitus:
Continue insulin sliding scale
Hemoglobin A1c 6.2
Gout:
Continue allopurinol
Alcohol use disorder:
Monitor for signs of withdrawal-none at the moment
DVT prophylaxis:
SCDs
CODE STATUS:
Full code
Time spent 35-minutes
Anticipated Discharge: 24 - 48 hours
Subjective/Interval History
-
Date of Service: December 03, 2024
Patient had some diarrhea. Tolerating clear liquid diet. No abdominal pain, no nausea or vomiting. Afebrile
Objective Data
-
Labs:
Laboratory Results
12/03/24 12/03/24
00:13 06:14
PT 19.6 H
INR 1.64
APTT 44.2 H
Sodium Pending
Potassium Pending
Chloride Pending
Carbon Dioxide Pending
BUN Pending
Creatinine Pending
Glucose Pending
Calcium Pending
Vital Signs:
Vital Signs
Temp Pulse Resp BP Pulse Ox
98.4 F 114 18 114/73 95
12/03/24 03:50 12/03/24 03:50 12/03/24 03:50 12/03/24 03:50 12/03/24 03:50
I&O
12/02/24 12/03/24 12/04/24
06:59 06:59 06:59
Intake Total 560 / 560
Balance 560 / 560
[2024-12-03] MEDS: FOLVITE 1 MG PO (08:10)
[2024-12-03] MEDS: PROTONIX 40 MG PO (08:10)
[2024-12-03] MEDS: THIAMINE INJECTION 200 MG IV ×2 (08:10→21:40)
[2024-12-03] MEDS: ZYLOPRIM 300 MG PO (08:11)
[2024-12-03] MEDS: TOPROL XL 25 MG PO (08:11)
[2024-12-03 08:24] LABS: Blood Urea Nitrogen 22 mg/dl (9-20); Calcium 8.4 mg/dl (8.4-10.2); Carbon Dioxide 23 mmol/L (22-30); Chloride 101 mmol/L (98-107); Estimated Creatinine Clearance 50 ml/min; Glucose 83 mg/dl (70-99); Potassium 3.5 mmol/L (3.5-5.1); Sodium 134 mmol/L (135-145); eGFR > 60.00
[2024-12-03 08:34] LABS: Glucose - Point of Care 95 mg/dl (70-99)
[2024-12-03 10:19] LABS: Glycohemoglobin (HgbA1c) 6.2 % (4.0-5.6)
--- NOTE | 2024-12-03 11:36 | PTCARENOTE ---
Pt was transferred to room 421 with him belongings. Report was given to ADRIAN Preston.
[2024-12-03 12:00] LABS: Glucose - Point of Care 117 mg/dl (70-99)
--- NOTE | 2024-12-03 12:26 | CON.GS ---
Addendum entered and electronically signed by Jae Hicks MD 12/03/24 13:11:
Patient seen and examined.
Patient is a 84 yo M with a PMH of GERD, HTN, A-fib (on Eliquis, LD 12/02 AM), BPH, and colon cancer s/p open WITH right colectomy in 2017 at [facility]. Mr. Dempsey presents with diarrhea and LEFT-sided abdominal discomfort. He has had nonbloody
diarrhea for the past several days. Yesterday he was found by his son to be febrile to 103 prompting presentation to the ED. He denies any specific abdominal discomfort. Denies any prior attacks of diverticulitis. Denies any nausea or vomiting.
Currently he feels improved. Last colonoscopy was in [address] Clarke and was notable for diverticulosis of the sigmoid and descending colon, internal hemorrhoids, no masses or polyps.
Gen: NAD
Abd: soft, mild tenderness in LEFT mid-abdomen, ND, non-peritoneal, prior midline incision well healed
Labs and CT scan reviewed.
Patient is a 84 yo M p/w acute uncomplicated diverticulitis.
The natural history and pathophysiology of diverticulitis was discussed. CT scan imaging was reviewed. Options for management were reviewed. Specifically, we discussed medical management with antibiotics and bowel rest versus surgical management
with bowel resection possible ostomy. I recommend medical management with bowel rest and antibiotics. Clinically appears to be improving at this time. All questions answered.
-- No plans for surgery at this time
-- Abx: Zosyn
-- Clears
-- Hold Eliquis for now, other home meds OK
Original Note:
Consultation
-
Date/Time Consultation Performed: 12/03/24 1040
Medical History
-
Chief Complaint: Fever
History of Present Illness:
Mr Dempsey is an 84 yo male with a h/o right colectomy in 2017 for cancer, TURP for BPH, Afib on Eliquis (LD 12/02 am) and GERD who presented through the ED yesterday for fever of 103.6 at home. He noted intermittent chills over the past few days with
diarrhea and generalized fatigue. He denies abdominal pain, but does note that yesterday, when he presented he had tenderness when his abdomen was examined. He notes diarrhea has persisted since presentation but denies nausea or vomiting. He has
been afebrile since arrival but was tachycardic on presentation. He has not noted tenderness on abdominal exam currently and denies pain.
Past Medical History
Past Medical History: Arrhythmias (PAF on Eliquis), Cancer (colon ca), GERD, HTN and Other (BPH, gout, ESBL uti's)
Past Surgical History: Bowel Resection (right colectomy at [facility] 2016), Urological (TURP) and Other (last colonoscopy 2022 with diverticulosis noted, patent anastomosis and internal hemorroids)
Social History
Tobacco: Former Smoker
Alcohol: Occasional
Family History
Family History: Reviewed & Not Pertinent
Allergies / Home Medications
Allergy/AdvReac Type Severity Reaction Status Date / Time
No Known Allergies Allergy Verified 12/02/24 16:33
�Medication �Instructions �Recorded �Confirmed �Type
allopurinol 300 mg tablet 300 mg PO DAILY Gout 01/23/11 12/02/24 History
testosterone cypionate 200 mg/mL 240 mg IM Q3W Hormonal Agent ##0 01/23/11 12/02/24 History
intramuscular kit
glucosamine sulfate dipotassium Cl 1 cap PO DAILY Supplement 09/24/14 12/02/24 History
500 mg-chondroitin 400 mg capsule
(Glucosamine Sulfate 2
KCL-Chondroitin)
metoprolol succinate 50 mg 25 mg PO DAILY Blood Pressure 09/24/14 12/02/24 History
tablet,extended release 24 hr
vit A 300 mcg-C 200 mg-E 27 1 ea PO DAILY Supplement 09/24/14 12/02/24 History
mg-lutein 2 mg and minerals tablet
(Ocuvite with Lutein)
amitriptyline 10 mg tablet 10 mg PO HS ##0 09/27/14 12/02/24 Rx
omega-3 650 mg-dha 400 mg-epa 200 3 tablets PO DAILY Supplement 06/14/16 12/02/24 History
mg-fish oil-vit D3 300 unit
capsule ([place]-3 Plus Vitamin D3)
lisinopril 10 mg tablet 10 mg PO DAILY Blood Pressure 12/03/18 12/02/24 History
metoprolol succinate 50 mg 50 mg PO QPM Blood Pressure 08/08/23 12/02/24 History
tablet,extended release 24 hr
multivitamin 1 tab PO DAILY Supplement 08/08/23 12/02/24 History
omeprazole 40 mg capsule,delayed 40 mg PO DAILY Gastrointestinal 08/08/23 12/02/24 History
release Issue
spironolactone 25 1 tab PO DAILY Blood Pressure 08/08/23 12/02/24 History
mg-hydrochlorothiazide 25 mg tablet
apixaban 5 mg tablet (Eliquis) 5 mg PO BID 12/02/24 12/02/24 History
cholecalciferol (vitamin D3) 50 50 mcg PO DAILY 12/02/24 12/02/24 History
mcg (2,000 unit) capsule (Vitamin
D3)
cyanocobalamin (vitamin B-12) 1,000 mcg PO DAILY 12/02/24 12/02/24 History
1,000 mcg capsule
Review of Systems
-
History Source: Patient and Family
All other systems: Negative unless noted
A 10 point review of systems was completed, and was negative except as per HPI.
Physical Exam
Vital Signs
Temp Pulse Resp BP Pulse Ox
98.0 F 99 18 113/70 98
12/03/24 11:35 12/03/24 11:35 12/03/24 11:35 12/03/24 11:35 12/03/24 11:35
12/02/24 12/03/24 12/04/24
06:59 06:59 06:59
Actual Weight 78.528 kg
Body Mass Index (BMI) 25.6
Lab Results
12/02/24 16:40
12/03/24 06:14
WBC 10.2 10^3/uL (4.8-10.8) 12/02/24 16:40
Hgb 12.2 g/dL (13.0-18.0) L 12/02/24 16:40
Hct 39.6 % (39.0-52.0) 12/02/24 16:40
Plt Count 199 10^3/uL (130-400) 12/02/24 16:40
Abs Immat Gran (auto) 0.0 10^3/uL (0-0.05) 12/02/24 16:40
Neutrophils % 79.0 % (42.2-75.2) H 12/02/24 16:40
Physical Exam
General: Well Developed and Well Nourished
HEENT: Normocephalic and Moist Mucous Membranes
Respiratory: Non Labored Respirations
GI: Soft, Non Tender and Non Distended
Skin: Warm and Dry
Neuro: Awake, Alert and AO x 3
Psych: Calm
Data Reviewed
-
CT Scan: Image Personally Visualized and interpreted, Report Reviewed by me, Discussed with Physician, Discussed with Patient and Discussed with Family
Labs: Labs Reviewed by me, Discussed with Physician, Discussed with Patient and Discussed with Family
Old Records: Reviewed
Assessment / Plan
-
84 yo male with h/o right colectomy in 2017 for cancer, TURP for BPH, Afib on Eliquis (LD 8 am) and GERD presenting with diarrhea and fevers. C-diff negative. Other stool cx pending. CT imaging reviewed with concern for acute sigmoid
diverticulitis without evidence of abscess, perforation or bowel compromise. This is his first episode of diverticulitis. Last colonoscopy was in 2022 with diverticulosis noted with patent anastomosis at that time. No leukocytosis. No further
fevers. VSS. Tolerating clears at this point. Benign abdominal exam.
Plan:
Ok for clears
Continue IV abx
Follow bowel pattern
No plans for emergent surgery at this time, will follow for improvement with ABX and bowel rest. Please hold oral AC in case surgical intervention is warranted
[2024-12-03] MEDS: LOPRESSOR 5 MG IV (14:39)
[2024-12-03 16:10] LABS: Glucose - Point of Care 90 mg/dl (70-99)
[2024-12-03] MEDS: TOPROL XL 50 MG PO (18:00)
[2024-12-03 21:21] LABS: Glucose - Point of Care 120 mg/dl (70-99)
[2024-12-04 03:25] VITALS: BP 119/66
[2024-12-04] MEDS: NSS 1000 IV (03:49)
[2024-12-04] MEDS: ZOSYN 50 IV ×4 (03:49→22:13)
[2024-12-04 06:58] LABS: Hematocrit 37.6 % (39.0-52.0); Hemoglobin 11.4 g/dL (13.0-18.0); Mean Corp Hgb Conc. 30.3 g/dL (33.0-37.0); Mean Corpuscular Volume 73.3 fL (80.0-94.0); Nucleated Red Blood Cells % 0 % (-); Platelet Count 196 10^3/uL (130-400); Red Cell Dist. Width 20.4 % (11.5-14.5)
[2024-12-04 07:00] VITALS: BP 105/73
[2024-12-04 07:20] LABS: Blood Urea Nitrogen 11 mg/dl (9-20); Calcium 8.0 mg/dl (8.4-10.2); Carbon Dioxide 24 mmol/L (22-30); Chloride 103 mmol/L (98-107); Estimated Creatinine Clearance 55 ml/min; Glucose 81 mg/dl (70-99); Magnesium 1.8 mg/dl (1.6-2.3); Potassium 3.6 mmol/L (3.5-5.1); Sodium 134 mmol/L (135-145); eGFR > 60.00
[2024-12-04 07:47] LABS: Glucose - Point of Care 80 mg/dl (70-99)
[2024-12-04] MEDS: FOLVITE 1 MG PO (08:00)
[2024-12-04] MEDS: TOPROL XL 25 MG PO (08:01)
[2024-12-04] MEDS: PROTONIX 40 MG PO (08:01)
[2024-12-04] MEDS: ZYLOPRIM 300 MG PO (08:02)
[2024-12-04] MEDS: THIAMINE INJECTION 200 MG IV ×2 (08:02→20:26)
[2024-12-04 08:42] LABS: C-Reactive Protein 189.70 mg/L (0.0-10.00)
--- NOTE | 2024-12-04 08:48 | W.PN.HOSP.TC ---
Today's Communication/Plan
-
IV antibiotics. Advancing diet. IV heparin drip
Assessment / Plan
Assessment / Plan
Physical exam:
General: Well Developed, Well Nourished and No Apparent Distress
HEENT: Normocephalic, Atraumatic and Moist Mucous Membranes
Respiratory: Clear to Auscultation; Negative Wheezes, Rales or Rhonchi
Cardiac: Regular Rhythm and S1/S2
GI: Soft, Nontender and Nondistended, palpable hernia in the abdomen.
Musculoskeletal: No Clubbing, No Cyanosis and No Edema
Neuro: Awake, Alert and Oriented, no neurological deficit. No tremors
Psych: Calm
A/P:
Acute diverticulitis:
Advance to low residue diet today per surgery
Stop IV fluid
Continue IV antibiotics, Zosyn
Colorectal consulted on admission and general surgery following
He will require follow-up colonoscopy as outpatient and family tells me he does have serial colonoscopies from previous colon cancer.
Discussed with son at bedside today on 12/04
Acute diarrhea:
Likely related to above
C. difficile negative
Stools pending for Salmonella, Campylobacter, Shiga toxin
SOHAN:
Improving
Creatinine down to 1.0, from 1.4 day before yesterday
Holding KIMANI inhibitor, spironolactone, HCTZ-might be able to resume tomorrow if renal function remains stable
Stop IVF today and recheck renal function in a.m.
Hyponatremia:
Stable
Sodium up to 134 today, from 132
On isotonic fluid but can stop today
History of recent ESBL UTI:
Appropriate contact precautions
Paroxysmal A-fib:
Continue rate control, metoprolol succinate 25 mg in the morning and 50 mg in the evening
IV Lopressor as needed-required extra dose yesterday but none today so we will continue to monitor
Discussed with surgery and they do not want Eliquis yet. Discussed with surgery also if okay with heparin drip and they are okay with heparin drip. Start heparin drip today.
Hypertension:
Continue home antihypertensives
Prediabetes mellitus:
Continue insulin sliding scale
Hemoglobin A1c 6.2
Gout:
Continue allopurinol
Alcohol use disorder:
Monitor for signs of withdrawal-none at the moment
DVT prophylaxis:
Heparin drip
CODE STATUS:
Full code
Time spent 37 minutes
Anticipated Discharge: 24 - 48 hours
Subjective/Interval History
-
Date of Service: December 04, 2024
Patient feels better overall. No abdominal pain. No nausea or vomiting. He is hungry. Still having soft bowel movements. No chest pain or shortness of breath
Objective Data
-
Labs:
Laboratory Results
12/04/24
05:38
WBC 8.1
Hgb 11.4 L
Hct 37.6 L
Plt Count 196
Sodium 134 L
Potassium 3.6
Chloride 103
Carbon Dioxide 24
BUN 11
Creatinine 1.0
Glucose 81
Calcium 8.0 L
Vital Signs:
Vital Signs
Temp Pulse Resp BP Pulse Ox
97.9 F 120 18 105/73 95
12/04/24 07:00 12/04/24 07:00 12/04/24 07:00 12/04/24 07:00 12/04/24 07:00
I&O
12/03/24 12/04/24 12/05/24
06:59 06:59 06:59
Intake Total 560 / 560 450 / 450
Balance 560 / 560 450 / 450
[2024-12-04 11:30] VITALS: BP 107/76
[2024-12-04 11:39] LABS: Glucose - Point of Care 102 mg/dl (70-99)
[2024-12-04] MEDS: HEPARIN 25000 UNITS/250 ML IV (12:08)
[2024-12-04 12:24] LABS: Hematocrit 37.2 % (39.0-52.0); Hemoglobin 11.6 g/dL (13.0-18.0); Mean Corp Hgb Conc. 31.2 g/dL (33.0-37.0); Mean Corpuscular Volume 71.8 fL (80.0-94.0); Platelet Count 202 10^3/uL (130-400); Red Cell Dist. Width 20.5 % (11.5-14.5)
[2024-12-04 12:35] LABS: APTT 46.2 Sec (23.4-35.0)
--- NOTE | 2024-12-04 13:07 | W.PN.GS2 ---
Today's Communication / Plan
-
-- Advance to LRD
-- Abx: Zosyn
-- Trend CRP
Assessment / Plan
-
84 yo M p/w acute uncomplicated diverticulitis
Febrile at home, but with no further fevers. Tachycardic with stable BP
No leukocytosis, CRP elevated
Tolerating dietary advancement today
Still with diarrhea, suspect secondary to inflammation. Stool studies negative thus far
Plan:
-- Advance to LRD
-- Abx: Zosyn
-- Trend CRP
Subjective Data
-
Date of Service: December 04, 2024
No complaints. Feels improved. Continues to have some mild residual LEFT sided abdominal discomfort. No nausea or vomiting. Passing flatus and stools, becoming more formed. Afebrile.
Objective Data
-
Intake and Output
12/03/24 12/04/24 12/05/24
06:59 06:59 06:59
Intake Total 560 / 560 450 / 450
Balance 560 / 560 450 / 450
Intake:
Oral fluids 450 / 450
IV fluids (Total) 560 / 560
Other:
Number of approximated MODERATE 2
amounts of urine
Number of approximated LARGE 3
amounts of urine
How many times incontinent 2
MODERATE amount urine
Vital Signs
Temp Pulse Resp BP Pulse Ox
98.3 F 106 18 107/76 97
12/04/24 11:30 12/04/24 11:30 12/04/24 11:30 12/04/24 11:30 12/04/24 11:30
Lab Results
12/04/24 12:05
12/04/24 05:38
Calcium 8.0 mg/dl (8.4-10.2) L 12/04/24 05:38
Phosphorus 3.4 mg/dl (2.5-4.5) 12/03/24 00:13
Magnesium 1.8 mg/dl (1.6-2.3) 12/04/24 05:38
Total Bilirubin 0.6 mg/dl (0.2-1.3) 12/02/24 16:40
AST 24 U/L (17-59) 12/02/24 16:40
ALT 17 U/L (0-50) 12/02/24 16:40
Alkaline Phosphatase 54 U/L (38-126) 12/02/24 16:40
Total Protein 7.2 g/dl (6.3-8.2) 12/02/24 16:40
Albumin 3.9 g/dl (3.5-5.0) 12/02/24 16:40
Physical Exam
-
Gen; NAD
Abd: soft, mild LEFT mid/lower abdominal tenderness, ND, non-peritoneal
Patient has a rojas catheter: No
Patient has a central line: No
[2024-12-04] MEDS: NSS IV (14:40)
--- NOTE | 2024-12-04 14:46 | CM ---
CM reviewed chart, patient seen bedside with daughter, initial assessment completed. Patient resides with his daughter, son in law, and three adult grandchildren in a multiple level home, first floor set up, one step to enter, also have ramp to
enter home. Patient has a RW, cane, shower chair, handicap accessible bathroom. Patient denies VN/SNF. PCP Hiram Lima, pharmacy [facility], confirms prescription coverage. Patient denies insecurities at home. CM discussed consult for
substance use, offered [facility], pt declined at this time. CM offered home therapy upon discharge, daughter would like VN for patient, patient declining at this time, will continue to think about VN services. CM will continue to follow for all
discharge planning needs.
Plan; home with family, declining VN at time
[2024-12-04] MEDS: MAGNESIUM SULFATE 50 IV (15:32)
[2024-12-04 16:39] VITALS: BP 109/70
[2024-12-04 17:06] LABS: Glucose - Point of Care 123 mg/dl (70-99)
[2024-12-04] MEDS: TOPROL XL 50 MG PO (17:27)
[2024-12-04 18:49] LABS: APTT 63.4 Sec (23.4-35.0)
[2024-12-04 19:00] VITALS: BP 113/72
[2024-12-04 21:00] LABS: Glucose - Point of Care 133 mg/dl (70-99)
[2024-12-04] MEDS: ELAVIL 10 MG PO (22:13)
[2024-12-04 23:00] VITALS: BP 100/61
[2024-12-05 01:29] LABS: APTT 65.5 Sec (23.4-35.0)
[2024-12-05 03:00] VITALS: BP 100/63
[2024-12-05] MEDS: ZOSYN 50 IV ×2 (03:22→09:25)
[2024-12-05 07:00] VITALS: BP 116/70
[2024-12-05 07:20] LABS: Glucose - Point of Care 94 mg/dl (70-99)
[2024-12-05 08:01] LABS: Hematocrit 38.9 % (39.0-52.0); Hemoglobin 11.8 g/dL (13.0-18.0); Mean Corp Hgb Conc. 30.3 g/dL (33.0-37.0); Mean Corpuscular Volume 73.7 fL (80.0-94.0); Platelet Count 204 10^3/uL (130-400); Red Cell Dist. Width 20.6 % (11.5-14.5)
[2024-12-05] MEDS: TOPROL XL 25 MG PO (08:04)
[2024-12-05] MEDS: FOLVITE 1 MG PO (08:04)
[2024-12-05] MEDS: THIAMINE INJECTION 200 MG IV (08:04)
[2024-12-05] MEDS: ZYLOPRIM 300 MG PO (08:04)
[2024-12-05] MEDS: PROTONIX 40 MG PO (08:04)
[2024-12-05 08:43] LABS: Blood Urea Nitrogen 10 mg/dl (9-20); Calcium 8.7 mg/dl (8.4-10.2); Carbon Dioxide 24 mmol/L (22-30); Chloride 105 mmol/L (98-107); Estimated Creatinine Clearance 55 ml/min; Glucose 77 mg/dl (70-99); Potassium 4.0 mmol/L (3.5-5.1); Sodium 136 mmol/L (135-145); eGFR > 60.00
[2024-12-05 08:44] LABS: APTT 59.2 Sec (23.4-35.0)
[2024-12-05 09:02] LABS: C-Reactive Protein 139.60 mg/L (0.0-10.00)
--- NOTE | 2024-12-05 10:43 | W.PN.HOSP.TC ---
Today's Communication/Plan
-
hopeful d/c today
Assessment / Plan
Assessment / Plan
pt is an 84 year old male
Acute diverticulitis--tolerated low residue diet--change zosyn to oral augmentin to finish course--He will require follow-up colonoscopy as outpatient and family tells me he does have serial colonoscopies from previous colon cancer.
Acute diarrhea--Likely related to above--C. difficile negative--Stools pending for Salmonella, Campylobacter, Shiga toxin
SOHAN--resolved
Improving
Holding KIMANI inhibitor, spironolactone, HCTZ-might be able to resume tomorrow if renal function remains stable
Hyponatremia--resolved
History of recent ESBL UTI:
Appropriate contact precautions
Paroxysmal A-fib:
Continue rate control, metoprolol succinate 25 mg in the morning and 50 mg in the evening
IV Lopressor as needed-required extra dose yesterday but none today so we will continue to monitor
restart eliquis
Hypertension:
Continue home antihypertensives
Prediabetes mellitus:
Continue insulin sliding scale
Hemoglobin A1c 6.2
Gout:
Continue allopurinol
Alcohol use disorder:
Monitor for signs of withdrawal-none at the moment
DVT prophylaxis:
Heparin drip
CODE STATUS:
Full code
Anticipated Discharge: Today
Subjective/Interval History
-
Date of Service: December 05, 2024
pt feeling well--asking about d/c
Objective Data
-
Labs:
Laboratory Results
12/05/24 12/05/24 12/05/24
00:44 06:29 14:55
WBC 8.0
Hgb 11.8 L
Hct 38.9 L
Plt Count 204
APTT 65.5 H 59.2 H Pending
Sodium 136
Potassium 4.0
Chloride 105
Carbon Dioxide 24
BUN 10
Creatinine 1.0
Glucose 77
Calcium 8.7
Vital Signs:
max temp for 24 hours
12/04/24
23:00
Temp 98.8 F
Vital Signs
Temp Pulse Resp BP Pulse Ox
98.1 F 78 12 116/70 98
12/05/24 07:00 12/05/24 08:04 12/05/24 07:00 12/05/24 08:04 12/05/24 07:00
I&O
12/04/24 12/05/24 12/06/24
06:59 06:59 06:59
Intake Total 450 / 450
Balance 450 / 450
Review of Systems
-
All other systems: Reviewed and negative
Physical Exam
-
General: Well Developed, Well Nourished and No Apparent Distress
HEENT: Normocephalic and Atraumatic
Respiratory: Clear to Auscultation; Negative Wheezes or Rhonchi
Cardiac: Regular Rhythm and S1/S2; Negative Murmur
GI: Soft, Nontender, Nondistended and Normal Bowel Sounds
Musculoskeletal: No Clubbing, No Cyanosis and No Edema
Neuro: Awake and Alert
[2024-12-05 11:00] VITALS: BP 113/59
[2024-12-05] MEDS: ELIQUIS 5 MG PO (11:10)
[2024-12-05 11:24] LABS: Glucose - Point of Care 136 mg/dl (70-99)
[2024-12-05] MEDS: AUGMENTIN 500 MG/125 MG 1 TABLET PO (11:28)
--- NOTE | 2024-12-05 11:51 | W.DCSUMMARY ---
Discharge Summary
Discharge Data
Date of Admission: 12/02/24
Date of Discharge: 12/05/24
-
Pending Results: Yes
Additional Pending Results:
Stool for Salmonella, Shigella, Shiga toxin
Hospital Course
Primary care physician : Hiram Lima
Principal Discharge diagnosis : Acute diverticulitis with diarrhea, acute kidney injury, hyponatremia,
Chronic Discharge diagnosis : History of recent extended spectrum beta-lactamase urinary tract infection, paroxysmal atrial fibrillation, essential hypertension, prediabetes mellitus, gout, alcohol use disorder
Hospital Course : Patient was an 84-year-old male with the above medical issues who presented with diarrhea for the past 5 days prior to admission. He stated that he had left lower quadrant abdominal pain as well and denied any nausea or vomiting.
Poor appetite also was associated. At home, he had a temperature of 103 with generalized weakness and unsteadiness. CAT scan done in the emergency department showed diverticulitis. Patient was admitted.
Problem #1: Acute diverticulitis with diarrhea. Patient initially made n.p.o. with IV fluids. Seen in consultation by colorectal surgery. He was started on Zosyn. Everything started to improve. Patient's diet was advanced and he was tolerating
a regular diet. He has been cleared for discharge by colorectal surgery for discharge home. Zosyn has been converted to Augmentin for 10 more days. Stool studies were checked and C. difficile and Campylobacter were negative.
Problem #2: Acute kidney injury. This is likely due to volume losses from diarrhea, with probably some contribution of KIMANI inhibitor and spironolactone/hydrochlorothiazide. Those medications were held, he was given IV fluids. Creatinine has now
returned to normal and those medications can be restarted.
Problem #3: Hyponatremia. Likely from all of the above. This is resolved and returned to normal.
Problem #4: All other medical issues. These include History of recent extended spectrum beta-lactamase urinary tract infection, paroxysmal atrial fibrillation, essential hypertension, prediabetes mellitus, gout, alcohol use disorder. These medical
issues were stable during his hospitalization. Medications were continued as able.
Patient is stable for discharge home at this time. If there are any questions regarding this dictation or his hospital stay, please do not hesitate to call. Our office number is [phone].
Time for discharge 35 minutes.
Important imaging findings :
CT SCAN ABDOMEN/PELVIS IMPRESSION: Findings suggesting new acute diverticulitis. No evidence of perforation or abscess formation.
Left adrenal mass. Stable from 2020 and no FDG avidity suggesting this is a benign adrenal adenoma
Hepatic fatty infiltration.. Stable
Mild prostate hypertrophy. Improved
Discharge Plan
-
Patient Disposition: Home (Routine Discharge)
Discharge Diagnosis/Procedures: Acute diverticulitis with diarrhea, acute kidney injury resolved, hyponatremia resolved, history of recent extended-spectrum beta-lactamase urinary tract infection, paroxysmal atrial fibrillation, essential
hypertension, prediabetes, gout, alcohol use disorder
Condition: Good
Diet: As tolerated and Regular
Activity: As tolerated
Driving Restrictions: As prior to admission
Bathing Restrictions: None
Referrals:
Hiram Lima MD [Family Provider, Family Practice] - in less than 1 week
Prescriptions:
New
amoxicillin-pot clavulanate 500-125 mg Tablet
1 tab PO Q12 10 Days Qty: 20 0RF
acetaminophen 325 mg Tablet
650 mg PO Q4HPRN PRN (Reason: mild pain/RUDOLPH/temp> 100.4F) Qty: 0 0RF
folic acid 1 mg Tablet
1 mg PO DAILY Qty: 0 0RF
thiamine mononitrate (vit B1) 100 mg Tablet
100 mg PO BID Qty: 0 0RF
Continued
allopurinol 300 MG tablet
300 mg PO DAILY
testosterone cypionate 200 mg/mL Kit
240 mg IM Q3W Qty: 0
Patient Comments:
1.2 ml
metoprolol succinate 50 MG tablet extended release 24 hr
25 mg PO DAILY
Ocuvite with Lutein 1 EACH tablet
1 ea PO DAILY
Glucosamine Sulf-Chondroitin 1 EACH capsule
1 cap PO DAILY
amitriptyline 10 MG tablet
10 mg PO HS Qty: 0 0RF
[place]-3 Plus Vitamin D3 1 EACH capsule
3 tablets PO DAILY
lisinopril 10 MG tablet
10 mg PO DAILY
multivitamin Tablet
1 tab PO DAILY
metoprolol succinate 50 mg Tablet Extended Release 24 Hr
50 mg PO QPM
spironolacton-hydrochlorothiaz 25-25 mg Tablet
1 tab PO DAILY
omeprazole 40 mg Capsule,Delayed Release(Dr/Ec)
40 mg PO DAILY
cholecalciferol (vitamin D3) [Vitamin D3] 50 mcg (2,000 unit) Capsule
50 mcg PO DAILY
Eliquis 5 mg Tablet
5 mg PO BID
cyanocobalamin (vitamin B-12) 1,000 mcg Capsule
1,000 mcg PO DAILY
Discharge Orders:
Discharge Patient (As Directed); Ordered 12/05/24
Ordered By: Arianna Reynoso
Discharge Date and Time
Print Language: ANGUILLAN
--- NOTE | 2024-12-05 13:02 | W.PN.CRS1 ---
Today's Communication / Plan
-
As below
Assessment/Plan
-
84 yo M p/w acute uncomplicated diverticulitis
Afebrile, HR 110s down to 70s, normotensive
WBC 8.0, CRP 140 from 190
C. difficile negative, stool studies pending, but negative so far
Plan:
-- Okay for regular diet, no restrictions
-- Continue pain control with Tylenol as needed
--Continue antibiotics, okay to switch to Augmentin to finish course outpatient
--Discussed with hospitalist; follow-up with me in 2 to 4 weeks
Subjective Data
Subjective Data
Date of Service: December 05, 2024
No overnight events. Diarrhea is improving, only 1 episode since this morning. Denies N/V or abdominal pain. Tolerating low residue.
Objective Data
-
Vital Signs
Temp Pulse Resp BP Pulse Ox
98.5 F 78 16 113/59 98
12/05/24 11:00 12/05/24 11:00 12/05/24 11:00 12/05/24 11:00 12/05/24 11:00
Intake & Output
12/04/24 12/05/24 12/06/24
06:59 06:59 06:59
Intake Total 450 / 450
Balance 450 / 450
Intake:
Oral fluids 450 / 450
Other:
Number of approximated MODERATE 3
amounts of urine
Number of approximated LARGE 3
amounts of urine
How many times incontinent 2
MODERATE amount urine
Lab Results
12/05/24 06:29
12/05/24 06:29
Physical Exam
-
General: No Acute Distress and AOx3
HEENT: Grossly Normal
Abdomen: Soft, Non Distended and Tender (Minimally tender in the LLQ, no rebound or guarding)
Skin: Warm and Dry
== END 2024-12-05 13:45 | disposition home or self-care (01) | DRG 683 ==
LOC: 4 WEST ACU 21:45
PROVIDERS: Hospitalist; Physician Assistant; Registered Nurse; ADMITTING PHYSICIAN Internal Medicine; ATTENDING PHYSICIAN Internal Medicine; CONSULT PHYSICIAN Surgery; EMERGENCY PHYSICIAN Emergency Medicine; FAMILY PHYSICIAN Family Medicine
DX: N17.9 Acute kidney failure, unspecified (principal); E87.1 Hypo-osmolality and hyponatremia; K57.32 Diverticulitis of large intestine without perforation or abscess without bleeding; I48.0 Paroxysmal atrial fibrillation; I10 Essential (primary) hypertension; E78.00 Pure hypercholesterolemia, unspecified; G47.30 Sleep apnea, unspecified; K21.9 Gastro-esophageal reflux disease without esophagitis; M10.9 Gout, unspecified; N40.0 Benign prostatic hyperplasia without lower urinary tract symptoms; E27.9 Disorder of adrenal gland, unspecified; E86.0 Dehydration; E66.09 Other obesity due to excess calories; R73.03 Prediabetes; F10.10 Alcohol abuse, uncomplicated; Z85.46 Personal history of malignant neoplasm of prostate; Z79.01 Long term (current) use of anticoagulants; Z79.890 Hormone replacement therapy; Z85.038 Personal history of other malignant neoplasm of large intestine; Z87.891 Personal history of nicotine dependence; Z82.49 Family history of ischemic heart disease and other diseases of the circulatory system; Z68.25 Body mass index [BMI] 25.0-25.9, adult; Z90.49 Acquired absence of other specified parts of digestive tract
CPT/HCPCS: 74177; 80048; 80053; 82010; 82077; 82962; 82977; 83036; 83605; 83735; 84100; 85025; 85027; 85610; 85730; 86140; 87045; 87046; 87077; 87184; 87186; 87324; 87427; 87449; 87502; 87811; 93005; 96361; 96365; 97163; 97167; 99285; Q9967